=== PATIENT | male | born 1965 | race Caucasian/White ===

== ENCOUNTER 2023-09-25 09:10 | Outpatient (CLI) | payer BC, SELFPAY ==
--- OUTSIDE RECORDS SUMMARY | 2023-10-02 09:39 | XMS_ITS ---
Author Name Unknown Organization [facility] Address [address] [place] [address] Care Team Providers Care Saturation Equipment Operator Name Role Phone Unavailable Unavailable Unavailable Surgery Details Not on file Complications Check Surgery Details section. Procedure Estimated Blood Loss Check Surgery Details section. Procedure Findings Check Surgery Details section. Procedure Specimens Taken Check Surgery Details section.
--- OUTSIDE RECORDS SUMMARY | 2023-10-02 09:39 | XMS_ITS | Encounter Summary ---
Author Name Unknown Organization [facility] Address [address] [place] [address] Care Team Providers Care Pickler Helper Name Role Phone Unavailable Primary Care Provider Unavailabl e Reason for Visit * Reason Comments Med Change Request Encounter Details Date Type Department Care Team ([facility] st Contact Info) Description 06/16/2023 Refill Department of Cardiovascular Medicine in [place], [place] [address] [place] [phone] Shoshana Delacruz M.D., Ph.D. [address] [place] [phone] Med Change Request Social History Tobacco Use Types Packs/Day Years Used Date Smoking Tobacco: Former Cigarettes 1.5 10 Cigars Smokeless Tobacco: Never Alcohol Use Standard Drinks/Week Comments Yes 9 (1 standard drink = 0.6 oz pur e alcohol) Humiliation, Afraid, Rape, and Kick questionnair e Answer Date Recorded Within the last year, have y ou been afraid of your partner or ex-partner? No 03/24/2023 Within the last year, have y ou been humiliated or emotionally abused in other ways by your partner or ex-partner? No Within the last year, have y ou been kicked, hit, slapped, or otherwise physically hurt by your partner or ex-partner? No 03/24/2023 Within the last year, have y ou been raped or forced to have any kind of sexual activity by your partner or ex-partner? No 03/24/2023 Overall Financial Resource Strain (CARDIA) Answe r Date Recorded How hard is it for you to pa y for the very basics like food, housing, medical care, and heating? Not hard at all 03/24/2023 Exercise Vital Sign Answer Date Recorde d On average, how many days pe r week do you engage in moderate to strenuous exercise (like a brisk walk)? 4 days 03/24/2023 On average, how many minutes do you engage in exercise at this level? 30 min 03/24/2023 Hunger Vital Sign Answer Date Recorded Within the past 12 months, y ou worried that your food would run out before you got the money to buy more. Never true 03/24/20 Within the past 12 months, t he food you bought just didn't last and you didn't have money to get more. Never true 03/24/2023 PRAPARE - Transportation Answer Date Re corded In the past 12 months, has l ack of transportation kept you from medical appointments or from getting medications? No 03/15 In the past 12 months, has l ack of transportation kept you from meetings, work, or from getting things needed for daily living? No 03/24/2023 Nutrition Answer Date Recorded Nutrition: EVOO Fat Source Unknown 03/24 On average, how many serving s of fruits and vegetables do you eat per day (serving size is equal to 1 cup or approximately the size of a tennis ball)? 0-2 03/24/2023 Dental Answer Date Recorded Dental: Regular Dentist Yes 03/24/20 Employment Answer Date Recorded Employment status Employed and actively working without restrictions 03/24/2023 Housing Stability Answer Date Recorded What is your living situation today? I have a [facility] place to live 03/24/2023 Sex and Gender Information Value Date Recorded Sex Assigned at Male 03/24/2023 10:10 PM CDT Gender Identity Male 03/24/2023 10:10 PM CDT Sexual Orientation Straight 03/24/2023 10 :10 PM CDT documented as of this encounter Miscellaneous Notes * Telephone Encounter - Ainsley Salcido - 07/07/2023 10:23 AM CDT Please see note from Dr. Delacruz documented in this encounter Plan of Treatment Upcoming Encounters Date Type Department Care Team (Latest Contact Info) Description 10/06/2023 1:00 PM SENIOR ETL DEVELOPER Clinical Communication Virtual Review in [place], [place] 200 [place] [address] 10/09/2023 7:30 AM SENIOR ETL DEVELOPER Appointment Department of Cardiovascular Diseases in [place], [place] [address] [place] [phone] Shoshana Delacruz M.D., Ph.D. [address] [place] [phone] Discharge Disposition: Home or Self Care 10/09/2023 9:15 AM SENIOR ETL DEVELOPER Appointment Department of Radiology, [facility], in [address] [phone] Shoshana Delacruz M.D., Ph.D. [address] [place] [phone] 10/09/2023 9:40 AM SENIOR ETL DEVELOPER Ancillary Procedure Department of Cardiovascular Medicine in [address] [phone] Shoshana Delacruz M.D., Ph.D. [address] [place] [phone] 10/09/2023 10:15 AM SENIOR ETL DEVELOPER Office Visit Department of Cardiovascular Medicine in [address] [phone] Shoshana Delacruz M.D., Ph.D. [address] [place] [phone] 10/09/2023 1:15 PM SENIOR ETL DEVELOPER Appointment Department of Cardiovascular Diseases in [address] [phone] Shoshana Delacruz M.D., Ph.D. [address] [place] [phone] documented as of this encounter Visit Diagnoses Not on filedocumented in this encounter
--- OUTSIDE RECORDS SUMMARY | 2023-10-02 09:39 | XMS_ITS | Encounter Summary ---
Author Name Unknown Organization [facility] Address [address] [place] [address] Care Team Providers Care Cafeteria Food Server Name Role Phone Unavailable Primary Care Provider Unavailabl e Reason for Referral * Outpatient (Routine) - Authorized Specialty Diagnoses / Procedures Referred By Contac t Referred To Contact Diagnoses Cardiomyopathy Hypertrophic (HCC) Procedures Echo Transthoracic (TTE) Shoshana Delacruz M.D., Ph.D. [address] [place] [phone] [facility] Referral ID Status Reason Start Date Expiration Date V isits Requested Visits Authorized [id number] Authorized 07/29/2023 07/28/2024 1 1 IS WORKER * Outpatient (Routine) - Authorized Specialty Diagnoses / Procedures Referred By Contac t Referred To Contact Diagnoses Cardiomyopathy Hypertrophic (HCC) Procedures Cardiopulmonary (VO2) Exercise Test Shoshana Delacruz M.D., Ph.D. [address] [place] [phone] [facility] Referral ID Status Reason Start Date Expiration Date V isits Requested Visits Authorized [id number] Authorized 07/29/2023 07/28/2024 1 1 IS WORKER * Outpatient (Routine) - Authorized Specialty Diagnoses / Procedures Referred By Contac t Referred To Contact Diagnoses Cardiomyopathy Hypertrophic (HCC) Procedures DX Chest AP or PA and Lateral 2 Views Shoshana Delacruz M.D., Ph.D. [address] [place] [phone] [facility] Referral ID Status Reason Start Date Expiration Date V isits Requested Visits Authorized [id number] Authorized 07/29/2023 07/28/2024 1 1 IS WORKER * Outpatient (Routine) - Authorized Specialty Diagnoses / Procedures Referred By Contac t Referred To Contact Diagnoses Cardiomyopathy Hypertrophic (HCC) Procedures ECG 12 Lead Shoshana Delacruz M.D., Ph.D. [address] [place] [phone] [facility] Referral ID Status Reason Start Date Expiration Date V isits Requested Visits Authorized [id number] Authorized 07/29/2023 07/28/2024 1 1 IS WORKER Encounter Details Date Type Department Care Team (Latest Contact Info) Description 07/25/2023 Clinical Communication Department of Cardiovascular Medicine in [place], [place] [address] [place] [phone] Shoshana Delacruz M.D., Ph.D. [address] [place] [phone] Social History Tobacco Use Types Packs/Day Years [...] your living situation today? I have a [facility] place to live 03/24/2023 Sex and Gender Information Value Date Recorded Sex Assigned at Male 03/24/2023 10:10 PM CDT Gender Identity Male 03/24/2023 10:10 PM CDT Sexual Orientation Straight 03/24/2023 10 :10 PM CDT documented as of this encounter Plan of Treatment Upcoming Encounters Date Type Department Care Team (Latest Contact Info) Description 10/06/2023 1:00 PM CRISIS WORKER Clinical Communication Virtual Review in [place], [place] 200 [place] [address] 10/09/2023 7:30 AM CRISIS WORKER Appointment Department of Cardiovascular Diseases in [address] [phone] Shoshana Delacruz M.D., Ph.D. [address] [place] [phone] Discharge Disposition: Home or Self Care 10/09/2023 9:15 AM CRISIS WORKER Appointment Department of Radiology, [facility], in [address] [phone] Shoshana Delacruz M.D., Ph.D. [address] [place] [phone] 10/09/2023 9:40 AM CRISIS WORKER Ancillary Procedure Department of Cardiovascular Medicine in [address] [phone] Shoshana Delacruz M.D., Ph.D. [address] [place] [phone] 10/09/2023 10:15 AM CRISIS WORKER Office Visit Department of Cardiovascular Medicine in [address] [phone] Shoshana Delacruz M.D., Ph.D. [address] [place] [phone] 10/09/2023 1:15 PM CRISIS WORKER Appointment Department of Cardiovascular Diseases in [address] [phone] Shoshana Delacruz M.D., Ph.D. [address] [place] [phone] Scheduled Orders Name Type Priority Associated Diagnoses Order Schedule ECG 12 Lead ECG Routine Cardiomyopathy Hypertrophic (HCC) Expected: 10/09/2023, Expires: 10/09/2025 DX Chest AP or PA and Lateral 2 Views Imaging RAD - Routine (most inpatients and all outpatients) Cardiomyopathy Hypertrophic (HCC) Expected: 10/09/2023, Expires: 10/09/2025 Cardiopulmonary (VO2) Exercise Test Cardiac Services Routine Cardiomyopathy Hypertrophic (HCC) Expected: 10/09/2023, Expires: 10/09/2025 Echo Transthoracic (TTE) Echocardiography Routine Cardiomyopathy Hypertrophic (HCC) Expected: 10/09/2023, Expires: 10/09/2025 documented as of this encounter Visit Diagnoses Diagnosis Cardiomyopathy Hypertrophic (HCC)- Primary documented in this encounter
--- OUTSIDE RECORDS SUMMARY | 2023-10-02 09:39 | XMS_ITS | Encounter Summary ---
Author Name Unknown Organization [facility] Address [address] [place] [address] Care Team Providers Care Coke Inspector Name Role Phone Unavailable Primary Care Provider Unavailabl e Reason for Visit * Reason Comments Med Refill Encounter Details Date Type Department Care Team (Late st Contact Info) Description 04/17/2023 Refill Outpatient Surgery and Procedural Admissions in [place], [place] [address] [place] [phone] Nathan Morgan, RSujathaN. Med Refill Social History Tobacco Use Types Packs/Day Years [...] your living situation today? I have a [facility] place to live 03/24/2023 Sex and Gender Information Value Date Recorded Sex Assigned at Male 03/24/2023 10:10 PM CDT Gender Identity Male 03/24/2023 10:10 PM CDT Sexual Orientation Straight 03/24/2023 10 :10 PM CDT documented as of this encounter Plan of Treatment Upcoming Encounters Date Type Department Care Team (Latest Contact Info) Description 10/06/2023 1:00 PM GROOVER AND STRIPER OPERATOR Clinical Communication Virtual Review in [place], [place] [address] [place] [address] 10/09/2023 7:30 AM GROOVER AND STRIPER OPERATOR Appointment Department of Cardiovascular Diseases in [place], [place] [address] [place] [phone] Shoshana Delacruz M.D., Ph.D. [address] [place] [phone] Discharge Disposition: Home or Self Care 10/09/2023 9:15 AM GROOVER AND STRIPER OPERATOR Appointment Department of Radiology, [facility], in [place], [place] [address] [place] [phone] Shoshana Delacruz M.D., Ph.D. [address] [place] [phone] 10/09/2023 9:40 AM GROOVER AND STRIPER OPERATOR Ancillary Procedure Department of Cardiovascular Medicine in [place], [place] [address] [place] [phone] Shoshana Delacruz M.D., Ph.D. [address] [place] [phone] 10/09/2023 10:15 AM GROOVER AND STRIPER OPERATOR Office Visit Department of Cardiovascular Medicine in [place], [place] [address] [place] [address] Shoshana Delacruz M.D., Ph.D. [address] [place] [phone] 10/09/2023 1:15 PM GROOVER AND STRIPER OPERATOR Appointment Department of Cardiovascular Diseases in [place], [place] [address] [place] [phone] Shoshana Delacruz M.D., Ph.D. [address] [place] [phone] documented as of this encounter Visit Diagnoses Not on filedocumented in this encounter
--- OUTSIDE RECORDS SUMMARY | 2023-10-02 09:39 | XMS_ITS | Encounter Summary ---
Author Name Unknown Organization [facility] Address [address] [place] [address] Care Team Providers Care Manager Psychiatry Name Role Phone Unavailable Primary Care Provider Unavailabl e Reason for Visit * Reason Comments Med Refill Encounter Details Date Type Department Care Team (Late st Contact Info) Description 04/17/2023 Refill Outpatient Surgery and Procedural Admissions in [place], [place] [address] [place] [phone] Nathan Morgan, RSujathaN. Med Refill [...] your living situation today? I have a [facility] place to live 03/24/2023 Sex and Gender Information Value Date Recorded Sex Assigned at Male 03/24/2023 10:10 PM CDT Gender Identity Male 03/24/2023 10:10 PM CDT Sexual Orientation Straight 03/24/2023 10 :10 PM CDT documented as of this encounter Plan of Treatment Upcoming Encounters Date Type Department Care Team (Latest Contact Info) Description 10/06/2023 1:00 PM JOINTER MACHINE Clinical Communication Virtual Review in [place], [place] [address] [place] [address] 10/09/2023 7:30 AM JOINTER MACHINE Appointment Department of Cardiovascular Diseases in [place], [place] [address] [place] [phone] Shoshana Delacruz M.D., Ph.D. [address] [place] [phone] Discharge Disposition: Home or Self Care 10/09/2023 9:15 AM JOINTER MACHINE Appointment Department of Radiology, [facility], in [place], [place] [address] [place] [address] Shoshana Delacruz M.D., Ph.D. [address] [place] [phone] 10/09/2023 9:40 AM JOINTER MACHINE Ancillary Procedure Department of Cardiovascular Medicine in [place], [place] [address] [place] [phone] Shoshana Delacruz M.D., Ph.D. [address] [place] [phone] 10/09/2023 10:15 AM JOINTER MACHINE Office Visit Department of Cardiovascular Medicine in [place], [place] [address] [place] [address] Shoshana Delacruz M.D., Ph.D. [address] [place] [phone] 10/09/2023 1:15 PM JOINTER MACHINE Appointment Department of Cardiovascular Diseases in [place], [place] [address] [place] [phone] Shoshana Delacruz M.D., Ph.D. [address] [place] [phone] documented as of this encounter Visit Diagnoses Not on filedocumented in this encounter
--- OUTSIDE RECORDS SUMMARY | 2023-10-02 09:39 | XMS_ITS | Encounter Summary ---
Author Name Unknown Organization [facility] Address [address] [place] [address] Care Team Providers Care Emergency Medical Services Coordinator Name Role Phone Unavailable Primary Care Provider Unavailabl e Reason for Visit * Reason Onset Date Comments Med Question 06/20/2023 Need clarificati on of which type of Metoprolol Encounter Details Date Type Department Care Team (Latest Contact Info) Description 06/20/2023 Clinical Communication Department of Cardiovascular Medicine in [place], [place] [address] [place] [phone] Shoshana Delacruz M.D., Ph.D. [address] [place] [phone] Med Question (Need clarification of which type of Metoprolol) Social History Tobacco Use Types Packs/Day Years [...] your living situation today? I have a [facility] place to live 03/24/2023 Sex and Gender Information Value Date Recorded Sex Assigned at Male 03/24/2023 10:10 PM CDT Gender Identity Male 03/24/2023 10:10 PM CDT Sexual Orientation Straight 03/24/2023 10 :10 PM CDT documented as of this encounter Miscellaneous Notes * Telephone Encounter - Meagan Vazquez RSujathaN. - 06/24/2023 11:22 AM CDT SUBJECTIVE CHIEF COMPLAINT / REASON FOR CALL Med Question (Need clarification of which type of Metoprolol) Information Discussed [facility] was contacted for medication clarification. RN clarified with the pharmacist that patient is on Metoprolol Succinate 100mg daily as well as Metoprolol Tartrate 50mg daily as needed for palpitations. PLAN The following references were used: nursing clinical judgement documented in this encounter Plan of Treatment Upcoming Encounters Date Type Department Care Team (Latest Contact Info) Description 10/06/2023 1:00 PM CATH LAB TECHNOLOGIST Clinical Communication Virtual Review in [address] [address] 10/09/2023 7:30 AM CATH LAB TECHNOLOGIST Appointment Department of Cardiovascular Diseases in [address] [phone] Shoshana Delacruz M.D., Ph.D. [address] [place] [phone] Discharge Disposition: Home or Self Care 10/09/2023 9:15 AM CATH LAB TECHNOLOGIST Appointment Department of Radiology, [facility], in [address] [phone] Shoshana Delacruz M.D., Ph.D. [address] [place] [phone] 10/09/2023 9:40 AM CATH LAB TECHNOLOGIST Ancillary Procedure Department of Cardiovascular Medicine in [address] [phone] Shoshana Delacruz M.D., Ph.D. [address] [place] [phone] 10/09/2023 10:15 AM CATH LAB TECHNOLOGIST Office Visit Department of Cardiovascular Medicine in [address] [phone] Shoshana Delacruz M.D., Ph.D. [address] [place] [phone] 10/09/2023 1:15 PM CATH LAB TECHNOLOGIST Appointment Department of Cardiovascular Diseases in [place], [place] [address] [place] [phone] Shoshana Delacruz M.D., Ph.D. [address] [place] [phone] documented as of this encounter Visit Diagnoses Not on filedocumented in this encounter
--- OUTSIDE RECORDS SUMMARY | 2023-10-02 09:39 | XMS_ITS | Clinical Summary ---
Author Name Unknown Organization [facility] Address [address] [place] [address] Care Team Providers Care Director Of Product Design Name Role Phone Unavailable Primary Care Provider Unavailabl e Source Comments Patient records contain information from all sites at [facility]. For routine questions regarding patient records, call [phone] during business hours, M-F 8:00 AM - 5:00 PM Central Time. Record requests for emergency care only can be directed to [phone] at any time.[facility] Allergies Active Allergy Reactions Criticality Noted Date Comments Nitroglycerin Other (see comments) 08/23/2014 Due to hypertropic cardiomyopathy HCM, he was told by pin inserter regulator Oxycodone Itching 06/10/2013 Penicillins Other (see comments) 06/10/2013 Medications Medication Sig Dispensed Refills Start Date End Date Status dronedarone (Multaq) 400 mg tablet Take 400 mg by mouth 2 (two) times a day with meals. 0 03/03/2023 Active rivaroxaban (XARELTO) 20 mg tablet Take 20 mg by mouth daily with dinner. 0 01/25/2023 Active testosterone (ANDROGEL) 1.62 % (20.25 mg/1.25 gram) gel Place 20.25 mg on the skin daily. 2 PUMPS A DAY 0 07/19/2019 Active L.acidoph-L.alvaro-B .bif-S.therm (BACID) 1 billion cell- 250 mg per tablet Take 1 tablet by mouth daily. 0 Active furosemide (LASIX) 20 mg tablet Take 0.5 tablets (10 mg total) by mouth daily. 45 tablet 3 03/26/2023 03/25/2024 Active valsartan (DIOVAN) 80 mg tablet Take 1 tablet (80 mg total) by mouth daily. 90 tablet 3 03/27/2023 Active metoprolol succinate (TOPROL-XL) 100 mg 24 hr tablet Take 1 tablet (100 mg total) by mouth daily. 90 tablet 3 04/08/2023 Active atorvastatin (LIPITOR) 80 mg tablet Take 1 tablet (80 mg total) by mouth daily. 90 tablet 3 04/17/2023 Active metoprolol tartrate (LOPRESSOR) 50 mg tablet Take 1 tablet (50 mg total) by mouth as needed (palpitations, increased heart rate). 30 tablet 3 04/17/2023 Active rivaroxaban (XARELTO) 20 mg tablet Take 1 tablet (20 mg total) by mouth daily with dinner. 90 tablet 3 04/17/2023 Active dronedarone (MULTAQ) 400 mg tablet Take 1 tablet (400 mg total) by mouth 2 (two) times a day with meals. 180 tablet 3 04/17/2023 Active Encounters Date Type Department Care Team Description 07/25/2023 Clinical Communication Department of Cardiovascular Medicine in [place], [place] [address] [place] [address] Shoshana Delacruz M.D., Ph.D. from Last 3 Months Family History Medical History Relation Name Comments Psychiatric Brother Luis Miguel Parkinson disease Father Jimbo Prostate cancer Father Jimbo Coronary artery disease Mother Alicia Hyperlipidemia Mother Alicia Hypertension Mother Alicia Obesity Mother Alicia Lung cancer Paternal Grandmother Stroke Paternal Grandmother ADD Son Jeet Relation Name Status Comments Brother Luis Miguel Father Jimbo Mother Alicia Paternal Grandmother Son Jeet Social History Tobacco Use Types Packs/Day Years Used Date Smoking Tobacco: Former Cigarettes 1.5 10 Cigars Smokeless Tobacco: Never Tobacco Cessation:Counseling Given: Not Answered Alcohol Use Standard Drinks/Week Comments Yes 9 [...] your living situation today? I have a [facility] place to live 03/24/2023 Sex and Gender Information Value Date Recorded Sex Assigned at Male 03/24/2023 10:10 PM CDT Gender Identity Male 03/24/2023 10:10 PM CDT Sexual Orientation Straight 03/24/2023 10 :10 PM CDT Last Filed Vital Signs Vital Sign Reading Time Taken Comments Blood Pressure 127/81 03/26/2023 9:38 AM CDT Pulse 59 03/26/2023 9:38 AM CDT Temperature - - Respiratory Rate - - Oxygen Saturation - - Inhaled Oxygen Concentration - - Weight 112 kg (246 lb 5.8 oz) 03/26/2023 9:38 AM CDT Height 177.4 cm (5' 9.84) 03/26/2023 9:38 AM CD T Body Mass Index 35.51 03/26/2023 9:38 AM CDT Plan of Treatment Upcoming Encounters Date Type Department Care Team (Latest Contact Info) Description 10/06/2023 1:00 PM BILINGUAL LOAN PROCESSOR Clinical Communication Virtual Review in [place], [place] [address] [place] [address] 10/09/2023 7:30 AM BILINGUAL LOAN PROCESSOR Appointment Department of Cardiovascular Diseases in [address] [phone] Shoshana Delacruz M.D., Ph.D. [address] [place] [phone] Discharge Disposition: Home or Self Care 10/09/2023 9:15 AM BILINGUAL LOAN PROCESSOR Appointment Department of Radiology, [facility] in [address] [address] Shoshana Delacruz M.D., Ph.D. [address] [place] [phone] 10/09/2023 9:40 AM BILINGUAL LOAN PROCESSOR Ancillary Procedure Department of Cardiovascular Medicine in [address] [address] Shoshana Delacruz M.D., Ph.D. [address] [place] [phone] 10/09/2023 10:15 AM BILINGUAL LOAN PROCESSOR Office Visit Department of Cardiovascular Medicine in [address] [address] Shoshana Delacruz M.D., Ph.D. [address] [place] [phone] 10/09/2023 1:15 PM BILINGUAL LOAN PROCESSOR Appointment Department of Cardiovascular Diseases in [place], [place] [address] [place] [phone] Shoshana Delacruz M.D., Ph.D. 200 [place] [phone] Health Maintenance Due Date Last Done Comments CT Colonography 1967 Cologuard 1967 Colonoscopy 1967 Colorectal Cancer Surveillance 1967 HIV Screening 1967 Hepatitis C Screening 1967 Hepatitis B Vaccines (2 of 3 - 19+ 3-dose series) 11/03/2001 10/06/2001, 08/04/2001 Zoster Vaccines (1 of 2) 2017 COVID-19 Vaccine ( season) 2023 08/06/2021, 12/21/2020, 11/30/2020 Influenza Vaccine (#1) 2023 , 08/20/2019, 08/14/2016, Additional history exists Depression Screening (Annual PHQ-2) 09/15/2023 Creatinine Level (Kidney Function Test) 03/25/2024 03/25/2023, 08/16/2022, 12/03/2021, Additional history exists Potassium Level 03/25/2024 03/25/2023, 10/2021, 12/03/2021, Additional history exists Sodium Level 03/25/2024 03/25/2023, 10/2021, 12/03/2021, Additional history exists DTaP,Tdap,and Td Vaccines (2 - Td or Tdap) 02/14/2025 02/14/2015, 02/27/2003, 03/16/1994 Fasting Glucose for Diabetes Screening 03/25/2026 03/25/2023, 08/16/2022, 12/03/2021, Additional history exists Lipid (Cholesterol) Screening 03/25/2028 03/25/2023, 11/13/2022, 08/16/2022 Pneumococcal vaccine (0-64 years) Aged Out No longer eligible based on patient's age to complete this topic
--- OUTSIDE RECORDS SUMMARY | 2023-10-02 09:39 | XMS_ITS | Referral Summary ---
Author Name Unknown Organization [facility] Address [address] [place] [address] Care Team Providers Care Trading Floor Operator Name Role Phone Unavailable Primary Care Provider Unavailabl e Source Comments Patient records contain information from all sites at [facility]. For routine questions regarding patient records, call [phone] during business hours, M-F 8:00 AM - 5:00 PM Central Time. Record requests for emergency care only can be directed to [phone] at any time.[facility] Encounters Date Type Department Care Team Description 07/25/2023 Clinical Communication Department of Cardiovascular Medicine in [place], [place] [address] [place] [address] Shoshana Delacruz M.D., Ph.D. from Last 3 Months Allergies Active Allergy Reactions Criticality Noted Date Comments Nitroglycerin Other (see comments) 08/23/2014 Due to hypertropic cardiomyopathy HCM, he was told by tenterer Oxycodone Itching 06/10/2013 Penicillins Other (see comments) [...] 2 PUMPS A DAY 0 07/19/2019 Active L.acidoph-L.bulg-B .bif-S.therm (BACID) 1 billion cell- 250 mg [...] with meals. 180 tablet 3 04/17/2023 Active Social History Tobacco Use Types Packs/Day Years [...] your living situation today? I have a [facility] place to live 03/24/2023 Sex and [...] (Latest Contact Info) Description 10/06/2023 1:00 PM PLATEN PRESS OPERATOR APPRENTICE Clinical Communication Virtual Review in [place], [place] [address] [place] [address] 10/09/2023 7:30 AM PLATEN PRESS OPERATOR APPRENTICE Appointment Department of Cardiovascular Diseases in [address] [phone] Shoshana Delacruz M.D., Ph.D. [address] [place] [phone] Discharge Disposition: Home or Self Care 10/09/2023 9:15 AM PLATEN PRESS OPERATOR APPRENTICE Appointment Department of Radiology, [facility], in [address] [phone] Shoshana Delacruz M.D., Ph.D. [address] [place] [phone] 10/09/2023 9:40 AM PLATEN PRESS OPERATOR APPRENTICE Ancillary Procedure Department of Cardiovascular Medicine in [address] [phone] Shoshana Delacruz M.D., Ph.D. [address] [place] [phone] 10/09/2023 10:15 AM PLATEN PRESS OPERATOR APPRENTICE Office Visit Department of Cardiovascular Medicine in [address] [phone] Shoshana Delacruz M.D., Ph.D. [address] [place] [phone] 10/09/2023 1:15 PM PLATEN PRESS OPERATOR APPRENTICE Appointment Department of Cardiovascular Diseases in [address] [address] Shoshana Delacruz M.D., Ph.D. [address] [place] [address]
--- OUTSIDE RECORDS SUMMARY | 2023-10-02 09:39 | XMS_ITS | Encounter Summary ---
Author Name Unknown Organization [facility] Address [address] [place] [address] Care Team Providers Care Health Aide Name Role Phone Unavailable Primary Care Provider Unavailabl e Encounter Details Date Type Department Care Team (Late st Contact Info) Description 04/10/2023 Documentation Department of Medical Genetics in [place], [place] [address] [place] [address] José Luis Mcqueen [address] [place] [address] Social History Tobacco Use Types Packs/Day Years [...] your living situation today? I have a [facility] place to live 03/24/2023 Sex and Gender Information Value Date Recorded Sex Assigned at Male 03/24/2023 10:10 PM CDT Gender Identity Male 03/24/2023 10:10 PM CDT Sexual Orientation Straight 03/24/2023 10 :10 PM CDT documented as of this encounter Progress Notes * José Luis Mcqueen - 04/10/2023 10:54 AM CDT Images from the original note were not included. CHIEF COMPLAINT Genetic Testing Results. Results disclosed on behalf of Karen Martinez MS, [facility] HISTORY OF PRESENT ILLNESS Shoshana was seen in [facility] due to a personal history of hypertrophic cardiomyopathy . At that time, they elected the Arrhythmia and Cardiomyopathy Comprehensive Panel from [facility]. These results were communicated to the patient via the patient online services portal by our genetic counseling shampoo assistant. IMPRESSION/REPORT/PLAN RESULTS To review, Shoshana had genetic testing which included comprehensive sequencing and gross deletion/duplication analysis of 168 genes related to cardiomyopathies and arrhythmias. A full list of the genes analyzed can be found on the report. No pathogenic mutations were identified with this testing. The results of the genetic testing did not identify any mutations of clinical significance. It is possible that a mutation exists in a gene not yet identified, or not tested for. Additionally, genetic testing has less than 100% sensitivity. Therefore, there is a small chance that there is a gene mutation that cannot be identified by current testing methodology. This result does not change medicalmanagement or the diagnosis of hypertrophic cardiomyopathy . 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 To review, a VUS is a change in the spelling of a gene for which the clinical implications are unknown. It could be a harmless change in the DNA (a benign variant) that has no clinical significance, or it could be a harmful change (a pathogenic variant). The MYOM1 gene currently has no well-established disease association; however, there is preliminaryevidence supporting a correlation with autosomal dominant hypertrophic cardiomyopathy (HCM) (PMID: 70378950 However, at this time there is not enough information to determine the significance of this variant. Most VUSs are eventually reclassified as benign changes in our DNA. It is not recommended to change medical management based on a VUS. Additionally, this result should not be used to test other family members. If the laboratory changes the classification of this variant over time, they will issue a new report and patient will be contacted. FAMILY SCREENING Because we could not identify a genetic cause for Shoshana???s clinical presentation, we will not be able to use genetic testing to screen other family members. It is unknown at this time the chance thatother family members will also develop cardiovascular symptoms. Therefore, relatives should inform their physicians of their family history. For individuals with a confirmed diagnosis of HCM, published HCM guidelines state that screening should occur for their first degree relatives (children, siblings, and parents) every 3-5 years for adults, and annually for adolescents (or earlier if a growth spurt or signs of puberty are evident and/or when there are plans for engaging in intense competitive sports or there is a family history of sudden ) (Guadalupe, 2011). It is also reasonable to screen second degree relatives, and possibly other relatives at risk with or without symptoms before to starting competitive sports (Enrique, 2009). Screening should include a physical exam, electrocardiogram, and echocardiogram at minimum. The frequency of screening should be discussed with each individual's managing timber grader. Individuals who participate in competitive athletics may also require more frequent screening, and should discuss this with their physicians. Family members should continue with screening as recommended by their providers. Early detection ofcardiomyopathy is important because it allows for appropriate surveillance and treatment initiation. Additionally, any family member who is experiencing cardiac or other symptoms should seek medical care. We encourage those seeking clinical evaluation or genetic testing to work with a physician or genetic counselor familiar with hereditary cardiomyopathy to ensure appropriate interpretation and follow up of results. We would be happy to see family members here at [facility] or are available toidentify resources closer to the individual's residence. PLAN Genetic testing for cardiomyopathies and arrhythmias will continue to improve over time, and it is recommended to recontact us every 3-5 years to determine if additional testing would be available. They are welcome to contact our clinic with any questions. Electronically signed by Karen Martinez M.S., [facility] at 04/11/2023 2:40 PM CDT documented in this encounter Plan of Treatment Upcoming Encounters Date Type Department Care Team (Latest Contact Info) Description 10/06/2023 1:00 PM WHITE SHOE RAGGER Clinical Communication Virtual Review in [address] [address] 10/09/2023 7:30 AM WHITE SHOE RAGGER Appointment Department of Cardiovascular Diseases in [address] [phone] Shoshana Delacruz M.D., Ph.D. [address] [place] [phone] Discharge Disposition: Home or Self Care 10/09/2023 9:15 AM WHITE SHOE RAGGER Appointment Department of Radiology, [facility], in [address] [phone] Shoshana Delacruz M.D., Ph.D. [address] [place] [phone] 10/09/2023 9:40 AM WHITE SHOE RAGGER Ancillary Procedure Department of Cardiovascular Medicine in [place], [place] [address] [place] [phone] Shoshana Delacruz M.D., Ph.D. [address] [place] [phone] 10/09/2023 10:15 AM WHITE SHOE RAGGER Office Visit Department of Cardiovascular Medicine in [place], [place] [address] [place] [phone] Shoshana Delacruz M.D., Ph.D. [address] [place] [phone] 10/09/2023 1:15 PM WHITE SHOE RAGGER Appointment Department of Cardiovascular Diseases in [place], [place] [address] [place] [phone] Shoshana Delacruz M.D., Ph.D. [address] [place] [phone] documented as of this encounter Visit Diagnoses Not on filedocumented in this encounter
--- OUTSIDE RECORDS SUMMARY | 2023-10-02 09:40 | XMS_ITS | Encounter Summary ---
Author Name Unknown Organization [facility] Address [address] [place] [address] Care Team Providers Care Geological Engineering Teacher Name Role Phone Unavailable Primary Care Provider Unavailabl e Reason for Visit * Appointment Request (Routine) - Closed Specialty Diagnoses / Procedures Referred By Contac t Referred To Contact Cardiovascular Disease Diagnoses Cardiomyopathy Hypertrophic (HCC) Referral ID Status Reason Start Date Expiration Date Visits Re quested Visits Authorized [id number] Closed 12/31/2022 12/31/2023 1 1 Encounter Details Date Type Department Care Team (Latest Contact Info) Description 03/26/2023 10:15 AM CDT Comprehensive Visit Department of Cardiovascular Medicine in [place], [place] [address] [place] [address] Shoshana Delacruz M.D., Ph.D. [address] [place] [address] Cardiomyopathy Obstructive Hypertrophic (HCC) (Primary Dx); Atrial Fibrillation Paroxysmal (HCC) Social History Tobacco Use Types Packs/Day Years [...] your living situation today? I have a [facility] place to live 03/24/2023 Sex and Gender Information Value Date Recorded Sex Assigned at Male 03/24/2023 10:10 PM CDT Gender Identity Male 03/24/2023 10:10 PM CDT Sexual Orientation Straight 03/24/2023 10 :10 PM CDT documented as of this encounter Last Filed Vital Signs Vital Sign Reading [...] Mass Index 35.51 03/26/2023 9:38 AM CDT documented in this encounter Consult Notes * Shoshana Delacruz M.D., Ph.D. - 03/26/2023 10:15 AM CDT SUBJECTIVE Referring Provider: No ref. provider found Reason for Consultation: 1. Sigmoid subtype hypertrophic cardiomyopathy. CHIEF COMPLAINT/REASON FOR CONSULT Initial evaluation, risk-stratification and management of sigmoid subtype hypertrophic cardiomyopathy. HISTORY OF PRESENT ILLNESS Mr. Shoshana Rinaldi is a very pleasant 57 y.o. male with a previous medical history significant for sigmoid subtype hypertrophic cardiomyopathy, coronary artery disease on outside 11/2021 coronary angiogram, paroxysmal atrial fibrillation s/p catheter ablation on dronedarone for rhythm control, hyperlipidemia, hypertension, and obstructive sleep apnea on CPAP who [facility] evaluation of sigmoid subtype hypertrophic cardiomyopathy. Briefly, Mr. Rinaldi first came to clinical attention from a hypertrophic cardiomyopathy perspectivein 05/2013 when the resting portion of a stress echocardiogram revealed asymmetric LV hypertrophy with a maximal LV wall thickness of 20 mm. Since this time, he has followed at [facility] (initially with Dr. Jenaro Alan and most recently with Dr. Shoshana Rasheed) with his most recent echocardiogram obtained in 07/2022 showing modest latent LVOT obstruction (no LVOT obstruction at rest; LVOT gradient of 37 mm Hg with Valsalva). Currently, Mr. Rinaldi's most significant issue relates to rare paroxysmal episodes of atrial fibrillation. Every 7-14 days he has symptomatic episodes of AppleWatch-documented atrial fibrillation that result in a pounding sensation and at times a sensation of near syncope. Importantly, symptoms occur even with rates in the 60's and 70's and to an even greater extent when rates are rarely >100 bpm. In addition, Mr. Rinaldi notes some bilateral lower extremity edema that over the past 1-2 month hasgotten precipitously worse to the point he was started on Lasix 20 mg PO daily. With this his lowerextremity swelling has improved and he denies any increased dyspnea or chest discomfort. From an exercise perspective, when his legs (bone spur and achilles tendon) are not bothering him he is able to run 3 miles at a 3 to 6 mph pace without issues and neither stairs nor inclines pose any sort of problem. He denies any syncope or overt heart failure symptoms. FAMILY HISTORY A multi generational family history was obtained. There is no clear family history of sudden cardiac amongst first-degree relatives. Similarly, there is no known family history of HCM. His mother in her mid 40's and had a history of open heart surgery for unclear reasons. The patient has 8 half siblings and no full siblings. His four adult children were screened for HCM during their high school years with no evidence of the disease but are currently due for re-screening. REVIEW OF SYSTEMS 10-point review of systems is negative except as per HPI. OBJECTIVE There were no vitals filed for this visit. BP Readings from Last 3 Encounters: No data found for BP PHYSICAL EXAMINATION General: Well appearing and appropriately interactive. Eyes: Anicteric sclera without conjunctival pallor. Vessels: No JVD. Heart: Regular rate and rhythm with audible S1 and S2, at rest I could not appreciate any systolic murmur. However, with Valsalva a Sands grade II/IV systolic murmur is appreciated at the upper sternal borders. Lungs: CTAB with no wheezes, rales, or rhonchi. Extremities: 1-2+ lower extremity pitting edema to the mid villafuerte. DIAGNOSTICS Labs: Hemoglobin 14, platelet of 243, white blood cell count 7.5, sodium of 143, potassium 4.2, creatinine of 1.13, glucose of 111, troponin of 7, proBNP of 75, total cholesterol 160, HDL of 51, LDL 70, triglycerides of 241, TSH of 1.7 no apparent monoclonal protein, alpha galactosidase leukocyte activity level is pending. ECG: Sinus bradycardia. Lateral T-wave inversions. AI ECG probability of hypertrophic cardiomyopathy is 0.55. Holter: pending. CPET: pending. TTE: Sigmoid subtype hypertrophic obstructive cardiomyopathy with a maximal LV wall thickness of 17mm. No left ventricular outflow tract obstruction at rest. With Valsalva the maximal instantaneous Doppler gradient through the left ventricular outflow tract was 34 mm Hg. Trivial systolic anterior motion of the mitral valve was observed with Valsalva. Normal LV chamber size with a calculated ejection fraction 69%. Mid left ventricular maximal Doppler gradient 19 mm of Hg at rest and 74 mm Hg with Valsalva. Global average LV strain was borderline -18%. Mild RV enlargement with normal systolic function. Normal inferior vena cava size and collapse. Cardiac MRI: Findings consistent with sigmoid subtype hypertrophic cardiomyopathy with a maximal LVwall thickness of 18 mm. No definitive delayed enhancement. Normal biventricular size and function. Genetic testing: No prior reports in the record. ASSESSMENT / PLAN #1 Sigmoid subtype hypertrophic cardiomyopathy with latent LVOT obstruction (MLVWT of 18 mm; max LVOT gradient of 34 mm Hg with Valsalva) #2 Coronary artery disease on outside 11/2021 coronary angiogram #3 Paroxysmal atrial fibrillation s/p catheter ablation on dronedarone for rhythm control and rivaroxaban for chronic anticoagulation #4 Hyperlipidemia #5 Hypertension #6 Obstructive sleep apnea on CPAP ASSESSMENT: It was wonderful to meet Mr. Rinaldi in the Cardiomyopathy Clinic this morning. I independently reviewed his clinical history and pertinent electrocardiographic, imaging and laboratory data. Collectively, his clinical picture is consistent with sigmoid subtype hypertrophic cardiomyopathywith modest latent LVOT obstruction. From a structural perspective, provokable bi-level (LVOT and mid-cavitary) is present with Valsalvaand the ensuing hyperdynamic LV function. As discussed with Mr. Rinaldi, I suspect the difference between today's study and that performed at [facility] last fall has to do with the addition of Lasix 20 mg PO daily and the resulting hemodynamic effect of dehydration/slightly underfilled LV on LVOT/mid-cavitary gradients. Ideally, we would reduce if not outright remove Lasix 20 mg PO daily as this definitively has the potential to exacerbate his propensity towards latent LVOT obstruction. Furthermore, although there is not a clear temporal relationship between the initiation of amlodipine and Mr. Rinaldi's bilateral lower extremity edema. In an effort, to remove confounding issues and hopefully pave a way towards getting him off Lasix, I recommended discontinuing amlodipine and initiating valsartan as the latter should adequately address his hypertension and does have oiwa-VMO-bqty/anti-fibrotic effects that theoretically could be beneficial in HCM. If blood pressure remains suboptimally controlled we may need to consider transitioning metoprolol succinate 100 mg PO daily to carvedilol to take advantage of the alpha jazmyn component from a hypertension perspective. From an electrical perspective, there are no red flag features or symptoms that fulfil a class I,IIa, or IIb indication for consideration of a primary prevention ICD. 24 hour Holter is pending, but no concerning NSVT was observed on 11/2021 extended ambulatory ECG monitor. Unfortunately, despite prior pulmonary vein isolation and ongoing use of dronedarone, Mr. Rinaldi continues to have a low burden of symptomatic paroxysmal atrial fibrillation even when rates are controlled. We discussed referral to the Heart Rhythm Clinic for consideration of repeat PVI/catheter ablation, but after discussing the need to control AF risk factors such as obstructive sleep apnea, obesity, and hypertension Mr. Rinaldi voiced interest in working on controlling these risk factors in hopes of either avoiding the need for or increasing the durability of a future repeat catheter ablation. To this end, I recommended discussing a trial of semaglutide (ie Ozempic) with his primary care providers at [facility]. With this and implementation of a structured exercise routine that takes advantage of a elliptical, stationary bike, or rower less likely to exacerbate his achilles tendon injury/bone spur, I am hopeful that he may avoid the need for consideration of CPAP (something he is not thrilled about) for MIRTA, hypertension will be easier to optimally control and paroxysmal AF episodes will decrease in frequency/severity. He was very interested in this approach and we mutually agreed to defer any sort of EP evaluation until after he has had some time to implement the above lifestyle changes. Lastly, we discussed the genetic nature of HCM at length. Mr. Rinaldi went through the process of sending genetic testing several years ago, but never learned his results nor could I identify any sortof return of results in CareEverywhere. It very well could be that due to insurance coverage or other issues that a genetic testing panel was never sent. Although the yield of genetic testing in sigmoid subtype HCM patients without any sort of family history of HCM is low (5%-10%), I do feel compelled to rule out the possibility of a monogenic genetic substrate. Ultimately, as discussed with Mr. Rinaldi, his HCM substrate may be polygenic in nature arising from the intersection of an increased burden of 10's to 100's of pro-hypertrophic common variants with environmental risk factors. However,for both his and his family's sake I would like to remove the possibility of a monogenic genetic basis. Regardless of the results of genetic testing, first-degree relatives (children, siblings, etc.) ought to undergo repeat clinical screening with an ECG and echocardiogram every 3-5 years in accordancewith current AHA/ACC guidelines. RECOMMENDATIONS: - Continue metoprolol succinate 100 mg PO daily and dronedarone 400 mg PO BID for the time being from an atrial fibrillation rate/rhythm control perspective. - Discontinue amlodipine 10 mg PO daily given the unexplained bilateral lower extremity edema as I am worried this may be contributing and resulting in a daily diuretic need. - Reduce lasix from 20 mg PO daily to 10 mg PO daily with the ultimate goal of discontinuing shouldlower extremity swelling improve with cessation of amlodipine. - As Mr. Rinaldi is likely to require additional support from the hypertension perspective, I recommended transitioning to valsartan 80 mg PO daily. This can be up-titrated as needed based on home blood pressure readings. - Given that Mr. Rinaldi has hit a wall from a weight loss perspective and is looking to fine-tune his CV/atrial fibrillation risk factors before consideration of re-do PVI, I asked him to discuss thepossibility of semaglutide with his PCP team. From an HCM and overall CV perspective, I am fully supportive and suspect this gives Mr. Rinaldi the best chance to address the weight gain and subsequentresulting co-morbid conditions that may be contributing to increased paroxsymal AF episodes. - As Mr. Rinaldi denies any exercise limitation or exercise-induced symptoms that pre-scheduled CPETcan be cancelled. - We will try to move up his 04/22/2023 CV Genetic Counseling visit to this afternoon as Ms. Dale CGC is impended in the Cardiomyopathy Clinic with me today and I suspect has availability for pre-test counseling and likely pursuit of commercial ricardo-arrhythmia/cardiomyopathy genetic testing. - At this juncture, Mr. Rinaldi would not qualify for a trial of a novel myosin inhibitor or consideration of septal reductive therapy. - There is no class IIa or IIb indication for consideration of a primary prevention ICD. - I will plan on seeing Mr. Rinaldi back in 6 months to re-assess things from an HCM, atrial fibrillation, hypertension and lower extremity edema perspective. In the interim, Mr. Rinaldi has my contactinformation and will reach out if any questions or concerns arise. This plan was discussed in detail with Mr. Rinaldi who is in agreement with the plan as outlined above. All questions answered to the best of my ability. * Marie Calhoun M.D. - 03/26/2023 10:15 AM CDT Referring Provider: Self-referred Reason for Consultation: 1. Hypertrophic cardiomyopathy CHIEF COMPLAINT/REASON FOR CONSULT Palpitations, dizziness HISTORY OF PRESENT ILLNESS Mr. Shoshana Rinaldi is a very pleasant 57 y.o. male [facility]. Today his main concern as atrial fibrillation episodes which are pretty symptomatic. 2-3 Afib episodes in a week that is documented by his Apple watch. During these episodes the heart rate ranges between 50-115 bpm. He feels palpitation, skipped heartbeats, chest pain and dizziness. Apart from these episodes he is totally asymptomatic, denies exertional shortness of breath, chest pain, lightheadedness/dizziness, syncope, presyncope. He used to run every day without limitations up to 2-3 months ago. Due to ankle injury he is less active and has put on about 30 lb. He is currently on amlodipine 10 mg, metoprolol XL 100 mg, Lasix 20 mg, atorvastatin 80 mg on Multaq 400 mg b.I.d.. The Lasix was started last year after developing bilateral lower extremity edema. He has a diagnosis of mild MIRTA since 2019 but does not use CPAP. Does not monitor home blood pressure regularly but on occasions where he measures, the BP averages around high 140s. Does not smoke, drinks alcohol on social occasions. Has 8 half siblings and 3 kids, were screened with transthoracic echocardiogram during teenage years without evidence of disease. No known family history of HCM/SCD. Mom at age 47 because of cardiac issues, had prior open heart surgery at age 30s. Past cardiac history Hypertrophic cardiomyopathy Obstructive Asymmetric septal hypertrophy, maximum thickness 18 mm at basal anteroseptum (Cardiac MRI 03/25/2023). Chordal Angel No LGE LA dilatation present No family history of SCD/hypertrophic cardiomyopathy Family screening: Incomplete Genetic screening: Reportedly negative 4-5 years ago Paroxysmal Afib SP PVI ablation ([facility], 2013), on Multaq and Xarelto Essential hypertension, poorly controlled Mild moderate nonobstructive coronary artery disease (coronary angiogram, [facility], 12/04) Hyperlipidemia Medical comorbidities MIRTA not on CPAP OBJECTIVE Vitals: 03/26/23 0938 BP: 127/81 BP Location: Left arm Patient Position: Sitting Cuff Size: Large Pulse: (!) 59 Weight: 112 kg Height: 177.4 cm BP Readings from Last 3 Encounters: 03/26/23 127/81 ASSESSMENT / PLAN Mr. Rinaldi's she symptomatic paroxysmal atrial fibrillation. It is reasonable to pursue rhythm control. He already had an ablation in 2013 and has been on Multaq with Afib burden of 2.5% on most recent Holter EKG. Available options are switching to sotalol or dofetilide and catheter ablation. He also has multiple potential modifiable factors contributing to his symptoms including uncontrolled blood pressure, untreated MIRTA and weight gain. For MIRTA he does not want to wear CPAP at rather focus onweight loss which is reasonable. He will follow-up with his PCP for GLP antagonist to augment weight loss, he will also focus on diet and exercise. For hypertension we will discontinue amlodipine as this is contributing to his leg swelling and start valsartan as well as switching metoprolol to coreg. He will follow-up with PCP for a BP goal less than 130/80 mm Hg. Mr. Rinaldi up to focus uncontrolled Afib risk factors and he will consider antiarrhythmic and/or ablation therapy if he remains symptomatic despite weight loss and adequate blood pressure control. From structural perspective there is provokable LVOT and mid cavitary obstruction with Valsalva andhyperdynamic LV function which is a new finding when compared to prior outside echocardiogram. I believe this is likely due to Lasix and amlodipine. I recommend discontinuing Lasix and amlodipine as d escribed above. At present he is at low risk for HCM related SCD and does not have ICD indication. For screening purposes I recommend genetic testing and repeat ECG plus TTE for first-degree relatives every 3-5 years in accordance with current aha/ACC guidelines. #1 Hypertrophic obstructive cardiomyopathy with asymmetric septal hypertrophy in the setting of #3 #2 Paroxysmal atrial fibrillation s/p PVI ablation, on Multaq #3 Essential hypertension, poorly controlled #4 Mild nonobstructive CAD (coronary angiogram, November 2021) #5 Hyperlipidemia #6 MIRTA not on CPAP #7 Obesity Plan 1. Discontinue amlodipine, decrease Lasix to 10 mg p.o. daily, start valsartan 80 mg. Will start Ozempic for weight control through his PCP. 2. Regular exercise, weight loss and healthy diet are discussed 3. CV genetic counseling 3. Follow-up within [address]Giudicessi Marie Alvarez M.D. documented in this encounter Plan of Treatment Upcoming Encounters Date Type Department Care Team (Latest Contact Info) Description 10/06/2023 1:00 PM WAREHOUSE TRAINER Clinical Communication Virtual Review in [address] [address] 10/09/2023 7:30 AM WAREHOUSE TRAINER Appointment Department of Cardiovascular Diseases in [address] [phone] Shoshana Delacruz M.D., Ph.D. [address] [place] [phone] Discharge Disposition: Home or Self Care 10/09/2023 9:15 AM WAREHOUSE TRAINER Appointment Department of Radiology, [facility], in [address] [phone] Shoshana Delacruz M.D., Ph.D. [address] [place] [phone] 10/09/2023 9:40 AM WAREHOUSE TRAINER Ancillary Procedure Department of Cardiovascular Medicine in [address] [phone] Shoshana Delacruz M.D., Ph.D. [address] [place] [phone] 10/09/2023 10:15 AM WAREHOUSE TRAINER Office Visit Department of Cardiovascular Medicine in [place], [place] [address] [place] [address] Shoshana Delacruz M.D., Ph.D. [address] [place] [phone] 10/09/2023 1:15 PM WAREHOUSE TRAINER Appointment Department of Cardiovascular Diseases in [place], [place] [address] [place] [address] Shoshana Delacruz M.D., Ph.D. [address] [place] [phone] documented as of this encounter Visit Diagnoses Diagnosis Cardiomyopathy Obstructive Hypertrophic (HCC)- Primary Atrial Fibrillation Paroxysmal (HCC) documented in this encounter
--- OUTSIDE RECORDS SUMMARY | 2023-10-02 09:40 | XMS_ITS | Encounter Summary ---
Author Name Unknown Organization [facility] Address [address] [place] [id number] Care Team Providers Care Marine Fireman Name Role Phone Unavailable Primary Care Provider Unavailabl e Reason for Visit * Reason Comments Med Refill Encounter Details Date Type Department Care Team ([facility] st Contact Info) Description 04/02/2023 Refill Department of Cardiovascular Medicine in [place], [place] [address] [place] [phone] Shoshana Delacruz M.D., Ph.D. [address] [place] [address] Med Refill Social History Tobacco Use Types [...] your living situation today? I have a [facility] place to live 03/24/2023 Sex and Gender Information Value Date Recorded Sex Assigned at Male 03/24/2023 10:10 PM CDT Gender Identity Male 03/24/2023 10:10 PM CDT Sexual Orientation Straight 03/24/2023 10 :10 PM CDT documented as of this encounter Miscellaneous Notes * Telephone Encounter - Meagan Vazquez R.N. - 04/08/2023 11:31 AM CDT Medication ordered and managed by Dr. Shoshana Rasheed with [facility] * Telephone Encounter - Omari Ainsley M - 04/02/2023 1:18 PM CDT Images from the original note were not included. Nurse review: Unable to pend medication to provider: Requested Med found on the EHA exclusion list. Name of Medication: Xarelto Strength: 20 mg Frequency: 1 tab daily Last seen: 03-26-23 Pharmacy: documented in this encounter Plan of Treatment Upcoming Encounters Date Type Department Care Team (Latest Contact Info) Description 10/06/2023 1:00 PM LEAD GENERATION MARKETING MANAGER Clinical Communication Virtual Review in [address] [address] 10/09/2023 7:30 AM LEAD GENERATION MARKETING MANAGER Appointment Department of Cardiovascular Diseases in [address] [phone] Shoshana Delacruz M.D., Ph.D. [address] [place] [phone] Discharge Disposition: Home or Self Care 10/09/2023 9:15 AM LEAD GENERATION MARKETING MANAGER Appointment Department of Radiology, [facility], in [address] [phone] Shoshana Delacruz M.D., Ph.D. [address] [place] [phone] 10/09/2023 9:40 AM LEAD GENERATION MARKETING MANAGER Ancillary Procedure Department of Cardiovascular Medicine in [address] [phone] Shoshana Delacruz M.D., Ph.D. [address] [place] [phone] 10/09/2023 10:15 AM LEAD GENERATION MARKETING MANAGER Office Visit Department of Cardiovascular Medicine in [address] [phone] Shoshana Delacruz M.D., Ph.D. [address] [place] [phone] 10/09/2023 1:15 PM LEAD GENERATION MARKETING MANAGER Appointment Department of Cardiovascular Diseases in [place], [place] [address] [place] [phone] Shoshana Delacruz M.D., Ph.D. [address] [place] [phone] documented as of this encounter Visit Diagnoses Diagnosis Atrial Fibrillation Unspecified (HCC) documented in this encounter
--- OUTSIDE RECORDS SUMMARY | 2023-10-02 09:40 | XMS_ITS | Encounter Summary ---
Author Name Unknown Organization [facility] Address [address] [place] [id number] Care Team Providers Care Therapist Name Role Phone Unavailable Primary Care Provider Unavailabl e Reason for Referral * Outpatient (Routine) - Closed Specialty Diagnoses / Procedures Referred By Amparoac t Referred To Contact Diagnoses Cardiomyopathy Obstructive Hypertrophic (HCC) Procedures Echo Transthoracic (TTE) Shoshana Delacruz M.D., Ph.D. 200 [place] [address] [facility] Referral ID Status Reason Start Date Expiration Date Visits Re quested Visits Authorized [id number] Closed 01/02/2023 01/02/2024 1 1 Reason for Visit * Outpatient (Routine) - Closed Specialty Diagnoses / Procedures Referred By Contac t Referred To Contact Diagnoses Cardiomyopathy Obstructive Hypertrophic (HCC) Procedures Echo Transthoracic (TTE) Shoshana Delacruz M.D., Ph.D. 200 [place] [address] [facility] Referral ID Status Reason Start Date Expiration Date Visits Re quested Visits Authorized [id number] Closed 01/02/2023 01/02/2024 1 1 Encounter Details Date Type Department Care Team (Latest Contact Info) Description 03/25/2023 6:15 PM CDT - 03/25/2023 11:59 PM CDT Hospital Encounter Department of Cardiovascular Diseases in [place], [place] 200 [place] [phone] Shoshana Delacruz M.D., Ph.D. [address] [place] [address] Cardiomyopathy Obstructive Hypertrophic (HCC) Discharge Disposition: Home or Self Care Social History Tobacco Use Types Packs/Day Years Used Date Smoking Tobacco: Former Cigarettes 1.5 10 Cigars Smokeless Tobacco: Never Humiliation, Afraid, Rape, and Kick questionnair e [...] money to buy more. Never true 03/24/20 23 Within the past 12 months, t he [...] your living situation today? I have a [facility] place to live 03/24/2023 Sex and Gender Information Value Date Recorded Sex Assigned at Male 03/24/2023 10:10 PM CDT Gender Identity Male 03/24/2023 10:10 PM CDT Sexual Orientation Straight 03/24/2023 10 :10 PM CDT documented as of this encounter Medications at Time of Discharge Medication Sig Dispensed Refills Start Date End Date dronedarone (Multaq) 400 mg tablet Take 400 mg by mouth 2 (two) times a day with meals. 0 03/03/2023 LSujathaacidfortunato-Albina-Destinybif-S. therm (BACID) 1 billion cell- 250 mg per tablet Take 1 tablet by mouth daily. 0 rivaroxaban (XARELTO) 20 mg tablet Take 20 mg by mouth daily with dinner. 0 01/25/2023 testosterone (ANDROGEL) 1.62 % (20.25 mg/1.25 gram) gel Place 20.25 mg on the skin daily. 2 PUMPS A DAY 0 07/19/2019 amLODIPine (NORVASC) 10 mg tablet Take 10 mg by mouth daily. 0 01/25/2023 03/26/2023 atorvastatin (LIPITOR) 80 mg tablet Take 80 mg by mouth daily. 0 11/28/2022 04/17/2023 furosemide (LASIX) 20 mg tablet Take 1 tablet by mouth daily. 0 01/31/2023 03/26/2023 metoprolol succinate (TOPROL-XL) 100 mg 24 hr tablet Take 100 mg by mouth daily. 0 01/25/2023 04/08/2023 metoprolol tartrate (LOPRESSOR) 50 mg tablet Take 50 mg by mouth as needed. 0 04/17/2023 documented as of this encounter Plan of Treatment Upcoming Encounters Date Type Department Care Team (Latest Contact Info) Description 10/06/2023 1:00 PM CONSULTING ANALYST Clinical Communication Virtual Review in [place], [place] 200 [place] [address] 10/09/2023 7:30 AM CONSULTING ANALYST Appointment Department of Cardiovascular Diseases in [address] [phone] Shoshana Delacruz M.D., Ph.D. [address] [place] [phone] Discharge Disposition: Home or Self Care 10/09/2023 9:15 AM CONSULTING ANALYST Appointment Department of Radiology, [facility], in [address] [phone] Shoshana Delacruz M.D., Ph.D. [address] [place] [phone] 10/09/2023 9:40 AM CONSULTING ANALYST Ancillary Procedure Department of Cardiovascular Medicine in [address] [phone] Shoshana Delacruz M.D., Ph.D. [address] [place] [phone] 10/09/2023 10:15 AM CONSULTING ANALYST Office Visit Department of Cardiovascular Medicine in [address] [phone] Shoshana Delacruz M.D., Ph.D. [address] [place] [phone] 10/09/2023 1:15 PM CONSULTING ANALYST Appointment Department of Cardiovascular Diseases in [address] [phone] Shoshana Delacruz M.D., Ph.D. [address] [place] [phone] documented as of this encounter Procedures Procedure Name Priority Date/Time Associated Diagnosis Comments (TTE) 2D ECHO DOPPLER COLOR Routine 03/25/2023 8:04 PM CDT Cardiomyopathy Obstructive Hypertrophic (HCC) documented in this encounter Results * (TTE) 2D ECHO DOPPLER COLOR (03/25/2023 8:04 PM CDT) Ejection Fraction 69 MC CV EIMS Mid-Ascending Aorta 39 MC CV EIMS LV Mass Index 103 MC CV EIMS LV End-Diastolic Diameter 48 MC CV EIMS LV End-Systolic Diameter 28 MC CV EIMS MV E Velocity 0.7 MC CV EIMS MV A Velocity 0.6 MC CV EIMS MV E/A 1.17 MC CV EIMS MV e' Velocity Medial 0.1 MC CV EIMS MV e' Velocity Lateral 0.13 MC CV EIMS MV E/e' Medial 7 MC CV EIMS MV E/e' Lateral 5.4 MC CV EIMS LV Global Longitudinal Strain -18 MC CV EIMS LV Interventricular Septal Wall Thickness 16 MC CV EIMS LV Posterior Wall Thickness 9 MC CV EIMS LV Relative Wall Thickness 38 MC CV EIMS RV 4-Chamber Basal Diameter 47 MC CV EIMS RV 4-Chamber Mid Diameter 36 MC CV EIMS RV 4-Chamber Length 80 MC CV EIMS Tricuspid Annular S? 0.18 MC CV EIMS RA Pressure 5 MC CV EIMS AV mean gradient 8 MC CV EIMS Aortic Valve Systolic Peak Velocity 1.8 MC CV EIMS Anatomical Region Laterality Modality Echocardiography 03/25/2023 6:58 PM CDT Impressions 03/25/2023 8:47 PM CDT Hypertrophic cardiomyopathy, obstructive. The septal contour was sigmoid. The thickest wall segment was the basal anterior septal segment (17 mm). Mid left ventricular maximal instantaneous Doppler gradient rest 19 mm Hg; Valsalva 74 mm Hg. Left ventricular outflow tract mean Doppler gradient with Valsalva 34 mm Hg. LEFT VENTRICLE:Normal left ventricular chamber size. Calculated 2-D linear left ventricular ejection fraction 69%. Strain imaging examination performed to assess left ventricular function. Global averaged left ventricular longitudinal peak systolic strain is borderline at -18% (normal = more negative than -18%). No regional wall motion abnormalities. Normal left ventricular filling pressure. RIGHT VENTRICLE:Mildly enlarged right ventricular chamber size. Normal right ventricular systolic function. Unable to detect peak tricuspid regurgitation velocity for pulmonary artery systolic pressure calculation. ATRIA:Normal left atrial size by visual estimate. Normal right atrial size by visual estimate. CARDIAC VALVES:Trileaflet aortic valve. Thickened aortic valve. No aortic valve regurgitation. Thickened mitral valve. Mitral chordal systolic anterior motion. Trivial mitral valve regurgitation. Normal pulmonary valve. Normal pulmonary valve systolic velocities. Trivial pulmonary valve regurgitation. Normal tricuspid valve. Trivial tricuspid valve regurgitation. OTHER ECHO FINDINGS:Normal inferior vena cava size with normal inspiratory collapse (>50%). Normal mid ascending aorta diameter of 39 mm. No abdominal aortic aneurysm. Normal abdominal aorta Doppler flow pattern. Lipomatous atrial septum. No atrial level shunt by color flow imaging. No intracardiac mass or thrombus, but the left atrial appendage cannot be visualized adequately with transthoracic echo to exclude thrombus in this location. No ??pericardial effusion. For the complete report, see the Order-Level Documents. Narrative 03/25/2023 8:47 PM CDT For the complete report, see the Order-Level Documents. Hemodynamics Heart Rate: 65 BPM Blood Pressure: 144 / 88 mmHg ECG: Sinus rhythm Final Impressions 1. Hypertrophic cardiomyopathy, obstructive. The septal contour was sigmoid, the thickest wall segment was the basal anterior septal segment (17 mm). 2. No left ventricular outflow tract obstruction at rest. With Valsalva the maximal instantaneous Doppler gradient through the LVOT is 34 mm Hg. 3. Mitral chordal systolic anterior motion with possible trivial systolic anterior motion of the mitral valve with Valsalva. ??Trivial mitral valve regurgitation at rest and with Valsalva. 4. Normal left ventricular chamber size. Calculated 2D linear left ventricular ejection fraction 69%. No regional wall abnormalities. 5. Mid left ventricular maximal instantaneous Doppler gradient rest 19 mm Hg; Valsalva 74 mm Hg in the setting of hyperdynamic systolic function and cavity obliteration at the mid level. 6. Global averaged left ventricular longitudinal peak systolic strain is borderline at -18% (normal = more negative than -18%). 7. Mildly enlarged right ventricular chamber size , normal systolic function. Unable to detect peak tricuspid regurgitation velocity for pulmonary artery systolic pressure calculation. 8. Normal inferior vena cava size with normal inspiratory collapse (>50%). No pericardial effusion. Procedure Note Joe Cade M.D. - 03/25/2023 For the complete report, see the Order-Level Documents. Hemodynamics Heart Rate: 65 BPM Blood Pressure: 144 / 88 mmHg ECG: Sinus rhythm Final Impressions 1. Hypertrophic cardiomyopathy, obstructive. The septal contour wassigmoid, the thickest wall segment was the basal anterior septal segment(17 mm). 2. No left ventricular outflow tract obstruction at rest. With Valsalvathe maximal instantaneous Doppler gradient through the LVOT is 34 mm Hg. 3. Mitral chordal systolic anterior motion with possible trivial systolicanterior motion of the mitral valve with Valsalva. Trivial mitral valveregurgitation at rest and with Valsalva. 4. Normal left ventricular chamber size. Calculated 2D linear leftventricular ejection fraction 69%. No regional wall abnormalities. 5. Mid left ventricular maximal instantaneous Doppler gradient rest 19 mmHg; Valsalva 74 mm Hg in the setting of hyperdynamic systolic function andcavity obliteration at the mid level. 6. Global averaged left ventricular longitudinal peak systolic strain isborderline at -18% (normal = more negative than -18%). 7. Mildly enlarged right ventricular chamber size , normal systolicfunction. Unable to detect peak tricuspid regurgitation velocity forpulmonary artery systolic pressure calculation. 8. Normal inferior vena cava size with normal inspiratory collapse (>50%).No pericardial effusion. Findings Hypertrophic cardiomyopathy, obstructive. The septal contour was sigmoid.The thickest wall segment was the basal anterior septal segment (17 mm).Mid left ventricular maximal instantaneous Doppler gradient rest 19 mm Hg;Valsalva 74 mm Hg. Left ventricular outflow tract mean Doppler gradientwith Valsalva 34 mm Hg. LEFT VENTRICLE:Normal left ventricular chamber size. Calculated 2-D linearleft ventricular ejection fraction 69%. Strain imaging examinationperformed to assess left ventricular function. Global averaged leftventricular longitudinal peak systolic strain is borderline at -18%(normal = more negative than -18%). No regional wall motion abnormalities.Normal left ventricular filling pressure. RIGHT VENTRICLE:Mildly enlarged right ventricular chamber size. Normalright ventricular systolic function. Unable to detect peak tricuspidregurgitation velocity for pulmonary artery systolic pressurecalculation. ATRIA:Normal left atrial size by visual estimate. Normal right atrial sizeby visual estimate. CARDIAC VALVES:Trileaflet aortic valve. Thickened aortic valve. No aorticvalve regurgitation. Thickened mitral valve. Mitral chordal systolicanterior motion. Trivial mitral valve regurgitation. Normal pulmonaryvalve. Normal pulmonary valve systolic velocities. Trivial pulmonary valveregurgitation. Normal tricuspid valve. Trivial tricuspid valveregurgitation. OTHER ECHO FINDINGS:Normal inferior vena cava size with normal inspiratorycollapse (>50%). Normal mid ascending aorta diameter of 39 mm. Noabdominal aortic aneurysm. Normal abdominal aorta Doppler flow pattern.Lipomatous atrial septum. No atrial level shunt by color flow imaging. Nointracardiac mass or thrombus, but the left atrial appendage cannot bevisualized adequately with transthoracic echo to exclude thrombus in thislocation. No pericardial effusion. For the complete report, see the Order-Level Documents. Shoshana Delacruz M.D., Ph.D. CV ECHO WI OCEDURES documented in this encounter Visit Diagnoses Diagnosis Cardiomyopathy Obstructive Hypertrophic (HCC) documented in this encounter
--- OUTSIDE RECORDS SUMMARY | 2023-10-02 09:40 | XMS_ITS | Encounter Summary ---
Author Name Unknown Organization [facility] Address [address] [place] [id number] Care Team Providers Care Digital Campaign Manager Name Role Phone Unavailable Primary Care Provider Unavailabl e Reason for Visit * Reason Comments Med Refill Encounter Details Date Type Department Care Team (Late st Contact Info) Description 03/27/2023 Refill Department of Cardiovascular Medicine in [place], [place] [address] [place] [phone] Shoshana Delacruz M.D., Ph.D. [address] [place] [phone] Med Refill Social History Tobacco Use Types [...] your living situation today? I have a [facility] place to live 03/24/2023 Sex and Gender Information Value Date Recorded Sex Assigned at Male 03/24/2023 10:10 PM CDT Gender Identity Male 03/24/2023 10:10 PM CDT Sexual Orientation Straight 03/24/2023 10 :10 PM CDT documented as of this encounter Plan of Treatment Upcoming Encounters Date Type Department Care Team (Latest Contact Info) Description 10/06/2023 1:00 PM DENTAL EQUIPMENT REPAIRER Clinical Communication Virtual Review in [place], [place] [address] [place] [address] 10/09/2023 7:30 AM DENTAL EQUIPMENT REPAIRER Appointment Department of Cardiovascular Diseases in [place], [place] [address] [place] [phone] Shoshana Delacruz M.D., Ph.D. [address] [place] [phone] Discharge Disposition: Home or Self Care 10/09/2023 9:15 AM DENTAL EQUIPMENT REPAIRER Appointment Department of Radiology, [facility], in [place], [place] [address] [place] [phone] Shoshana Delacruz M.D., Ph.D. [address] [place] [phone] 10/09/2023 9:40 AM DENTAL EQUIPMENT REPAIRER Ancillary Procedure Department of Cardiovascular Medicine in [place], [place] [address] [place] [phone] Shoshana Delacruz M.D., Ph.D. [address] [place] [phone] 10/09/2023 10:15 AM DENTAL EQUIPMENT REPAIRER Office Visit Department of Cardiovascular Medicine in [place], [place] [address] [place] [phone] Shoshana Delacruz M.D., Ph.D. [address] [place] [phone] 10/09/2023 1:15 PM DENTAL EQUIPMENT REPAIRER Appointment Department of Cardiovascular Diseases in [place], [place] [address] [place] [phone] Shoshana Delacruz M.D., Ph.D. [address] [place] [phone] documented as of this encounter Visit Diagnoses Not on filedocumented in this encounter
--- OUTSIDE RECORDS SUMMARY | 2023-10-02 09:40 | XMS_ITS | Encounter Summary ---
Author Name Unknown Organization [facility] Address [address] [place] [id number] Care Team Providers Care Timing Adjuster Name Role Phone Unavailable Primary Care Provider Unavailabl e Reason for Visit * Outpatient (Routine) - Closed Specialty Diagnoses / Procedures Referred By Niels t Referred To Contact [facility] Diagnoses Cardiomyopathy Obstructive Hypertrophic (HCC) Shoshana Delacruz M.D., Ph.D. [address] [place] [phone] [facility] Referral ID Status Reason Start Date Expiration Date Visits Re quested Visits Authorized [id number] Closed 01/02/2023 01/02/2024 1 1 Encounter Details Date Type Department Care Team (Latest Contact Info) Description 03/26/2023 2:00 PM CDT Comprehensive Visit Department of Cardiovascular Medicine in [place], [place] [address] [place] [phone] Shoshana Delacruz M.D., Ph.D. [address] [place] [address] [phone] Karen Martinez M.S., [facility] [address] [place] [phone] Cardiomyopathy Obstructive Hypertrophic (HCC) (Primary Dx) Social History Tobacco Use Types Packs/Day Years [...] your living situation today? I [facility] a [facility] to live 03/24/2023 Sex and Gender Information Value Date Recorded Sex Assigned at Male 03/24/2023 10:10 PM CDT Gender Identity Male 03/24/2023 10:10 PM CDT Sexual Orientation Straight 03/24/2023 10 :10 PM CDT documented as of this encounter Consult Notes * Karen Martinez M.S., [facility] - 03/26/2023 2:00 PM CDT Images from the original note were not included. REFERRING PROVIDER Shoshana Delacruz M.D., Ph.D. CHIEF COMPLAINT Personal history of hypertrophic cardiomyopathy HISTORY OF PRESENT ILLNESS Shoshana Rinaldi is a delightful 57 y.o. male kindly referred today by Shoshana Delacruz M.D., Ph.D.due to his personal history of Hypertrophic Cardiomyopathy (HCM). Please see Dr. Delacruz's consult note for detailed information regarding work-up and diagnosis. Briefly, the patient was first diagnosed with HCM in 2012 at approximately age 48. The patient has sigmoid septal morphology with a maximum left ventricular wall thickness of 18 mm. He also has a history of paroxysmal atrial fibrillation status post ablation which was unsuccessful at resolving his symptoms. His history is also significant for coronary artery disease in the setting of hyperlipidemia, hypertension, and MIRTA currently on CPAP. Alpha galactosidase enzyme testing was pending. The patient attended today's consultation unaccompanied for genetic counseling to discuss the genetics and inheritance of HCM and to review screening recommendations and genetic testing options. The session was led today by genetic counseling student Sandi Olson under my direct supervision. FAMILY HISTORY A detailed family history was obtained from the patient and a pedigree was constructed. The pedigree will be saved as a scanned document and available for viewing under the Media tab of [facility]. Our risk assessment is based upon medical and family history information as provided by the patient, and may change in the future should new information be obtained. Relevant Summary - Mother due to unspecified heart issues at age 47. Mentioned she may have had Scarlet or rheumatic fever earlier in her life and required a bypass in her 30s. The remainder of the family history was non-contributory to today's discussion. There were no otherreported sudden deaths, single-vehicle car accidents, drowning incidents, recurrent syncope, implantable devices, or other symptoms/events suggestive of cardiomyopathy. Please see complete pedigree for additional detail. IMPRESSION/REPORT/PLAN Please see Dr. Delacruz's clinic note for further details pertaining to the Impression/Report/Plan. I had the pleasure of meeting Mr. Rinaldi to discuss his diagnosis of HCM and the screening recommendations for family members. I began my consultation with Mr. Rinaldi by reviewing the reason for his referral to [facility]. I discussed that my role in his process of care would be to evaluate for a single-gene hereditary susceptibility to HCM. Mr. Rinaldi understood and was interested in this consultation. PATIENT EDUCATION HCM is a common hereditary cardiac condition that causes hypertrophy of the muscle fibers of the heart resulting in thicker heart chamber pryor. This can reduce the heart's ability to pump blood effectively, which, in severe cases, can lead to heart failure or cardiac arrest. Common symptoms of HCMinclude shortness of breath, dizziness, fainting, palpitations, chest pain, and exercise intolerance. HCM affects approximately 1/500 individuals and affects both men and women. There is still much we do not know about all of the causes of HCM, but individuals without a family history of HCM or a causative gene mutation, it can be secondary to other underlying medical issues such as high blood pressure. Most cases of HCM are inherited through families and is due to a mutation in a gene that is important in creating the structural components of the heart. Genetic testing can sometimes identifythis gene mutation which can help guide screening of other family members for HCM. HCM is most often inherited in an autosomal dominant pattern meaning that first degree relatives have a 50% chance of also inheriting the gene mutation that predisposes them to developing HCM. Based on studies by Enrique et al. 2014 and Derek et al. 2016; an estimation of the probability of identifying a variant with genetic testing can be estimated using six clinical markers: age of diagnosis, maximum left ventricular thickness, family history of HCM, family history of sudden cardiac , reverse-curve morphology, and history of hypertension. The patient's score is -1. This means the likelihood of identifying a variant with genetic testing is approximately 6%. Additionally, the patient's septal morphology is noted to be sigmoid. In individuals with this septal morphology, it is estimated there is a 10% chance that a myofilament gene will be identified on genetic testing. Approximate cost and insurance coverage were discussed. Risks, benefits, and limitations of genetictesting were discussed. Implications of possible test results, including positive, negative, and variant of uncertain significance, were discussed. Any VUS identified would be reviewed. If there is not an increased concern for the VUS contributing to the patient's symptoms, it was stressed that testing for relatives would not be indicated. Mr. Rinaldi acknowledged understanding of the likelihood of finding a VUS and noted they were comfortable with this possibility. We discussed that there is recent evidence suggesting that multiple variants across tens or hundreds of genes may work jointly to increase an individual's risk of HCM along with environmental risk factors (Cabrera et al., 2021; Aracelier et al., 202). We are unable to offer clinical testing for this form of inheritance (polygenic and multifactorial) at this time. Therefore, even if Mr. Rinaldi does not have an identifiable HCM variant, we discussed that this does not rule out the possibility of a hereditary factor in his development of HCM. We also discussed the importance of family screening,regardless of any uncertain or negative genetic test results, which is described in detail below. FAMILY SCREENING Since the etiology of Mr. Rinaldi's diagnosis of HCM is currently unknown, cardiac screening for thepatient's first-degree relatives is recommended. Published guidelines state that screening for HCM should occur every 3-5 years for adults, annually for children, and every 1-3 years for adolescents (or earlier if a growth spurt or signs of puberty are evident and/or when there are plans for engaging in intense competitive sports or there is a family history of sudden ) (Joyce, 2018). It is also reasonable to screen the patient's second-degree relatives as well as other relatives at risk with or without symptoms before starting competitive sports (Enrique, 2009). Individuals who partici el in competitive athletics may also require more frequent screening, and should discuss this with their physicians. However, genetic testing can allow for a more cost-effective and informative means to screen familymembers. If a mutation is identified as the cause of Mr. Rinaldi's diagnosis of HCM, other family members can be tested for the mutation to determine whether they require increased cardiac screening. If the familial mutation is not identified in another family member, ongoing clinical screening would not be necessary. Early detection of HCM is important because it allows for appropriate surveillance and treatment initiation. Additionally, any family member who is experiencing cardiac or other symptoms should seek medical care. We encourage those seeking clinical evaluation or genetic testing to work with a physician or genetic counselor familiar with HCM to ensure appropriate interpretation and follow up of results. We would be happy to see family members here at [facility] or are available to identify resources closer to the individual's residence. PLAN Mr. Rinaldi elected to pursue the Comprehensive Cardiomyopathy & Arrhythmia Panel through [facility]. Mr. Rinaldi will complete a blood draw today. The laboratory will complete insurance pre-verification for testing and will contact the patient with his estimated [id number] cost. Results will become available approximately 3-4 weeks from the release of testing. The patient will be con tacted with his test results when they become available. Screening and management recommendations will be made for the patient and his family members at the time of results disclosure. It was a pleasure to meet Mr. Rinaldi. The patient expressed understanding of the information above.The impression and plan were discussed in detail. There were no apparent barriers to learning or understanding. Questions were answered to the best of my ability, and I remain available to answer anyadditional questions in the future. Total time: 30 minutes documented in this encounter Plan of Treatment Upcoming Encounters Date Type Department Care Team (Latest Contact Info) Description 10/06/2023 1:00 PM APPELLATE LAW CLERK Clinical Communication Virtual Review in [address] [phone] 10/09/2023 7:30 AM APPELLATE LAW CLERK Appointment Department of Cardiovascular Diseases in [address] [phone] Shoshana Delacruz M.D., Ph.D. [address] [place] [phone] Discharge Disposition: Home or Self Care 10/09/2023 9:15 AM APPELLATE LAW CLERK Appointment Department of Radiology, [facility], in [address] [phone] Shoshana Delacruz M.D., Ph.D. [address] [place] [phone] 10/09/2023 9:40 AM APPELLATE LAW CLERK Ancillary Procedure Department of Cardiovascular Medicine in [place], [place] [address] [place] [phone] Shoshana Delacruz M.D., Ph.D. [address] [place] [phone] 10/09/2023 10:15 AM APPELLATE LAW CLERK Office Visit Department of Cardiovascular Medicine in [place], [place] [address] [place] [phone] Shoshana Delacruz M.D., Ph.D. [address] [place] [phone] 10/09/2023 1:15 PM APPELLATE LAW CLERK Appointment Department of Cardiovascular Diseases in [place], [place] [address] [place] [phone] Shoshana Delacruz M.D., Ph.D. [address] [place] [phone] documented as of this encounter Visit Diagnoses Diagnosis Cardiomyopathy Obstructive Hypertrophic (HCC)- Primary documented in this encounter
--- OUTSIDE RECORDS SUMMARY | 2023-10-02 09:40 | XMS_ITS | Encounter Summary ---
Author Name Unknown Organization [facility] Address [address] [place] [phone] Care Team Providers Care Boiler Plant Worker Name Role Phone Unavailable Primary Care Provider Unavailabl e Encounter Details Date Type Department Care Team (Latest Contact Info) Description 03/25/2023 9:20 AM CDT - 03/25/2023 11:35 AM CDT Hospital Encounter Department of Laboratory Medicine and Pathology, [facility], in [place], [place] [address] [place] [address] Shoshana Delacruz M.D., Ph.D. [address] [place] [address] Cardiomyopathy Obstructive Hypertrophic (HCC) Discharge Disposition: Home [...] living situation today? I have a [facility] place to live 03/24/2023 Sex and [...] times a day with meals. 0 03/03/2023 L.acidoph-L.bulg-B.bif-S. therm (BACID) 1 billion cell- 250 mg [...] (Latest Contact Info) Description 10/06/2023 1:00 PM AUTOMATIC LINE SET UP MECHANIC Clinical Communication Virtual Review in [place], [place] 200 [place] [address] 10/09/2023 7:30 AM AUTOMATIC LINE SET UP MECHANIC Appointment Department of Cardiovascular Diseases in [place], [place] [address] [place] [phone] Shoshana Delacruz M.D., Ph.D. [address] [place] [phone] Discharge Disposition: Home or Self Care 10/09/2023 9:15 AM AUTOMATIC LINE SET UP MECHANIC Appointment Department of Radiology, [facility], in [place], [place] [address] [place] [phone] Shoshana Delacruz M.D., Ph.D. [address] [place] [phone] 10/09/2023 9:40 AM AUTOMATIC LINE SET UP MECHANIC Ancillary Procedure Department of Cardiovascular Medicine in [place], [place] [address] [place] [address] Shoshana Delacruz M.D., Ph.D. [address] [place] [phone] 10/09/2023 10:15 AM AUTOMATIC LINE SET UP MECHANIC Office Visit Department of Cardiovascular Medicine in [place], [place] [address] [place] [phone] Shoshana Delacruz M.D., Ph.D. [address] [place] [phone] 10/09/2023 1:15 PM AUTOMATIC LINE SET UP MECHANIC Appointment Department of Cardiovascular Diseases in [place], [place] [address] [place] [phone] Shoshana Delacruz M.D., Ph.D. [address] [place] [phone] documented as of this encounter Procedures Procedure Name Priority Date/Time Associated Diagnosis Comments MONOCLONAL GAMMOPATHY DIAGNOSTIC, S Routine 03/25/2023 9:48 AM CDT Cardiomyopathy Obstructive Hypertrophic (HCC) LIPID PANEL, S Routine 03/25/2023 9:48 AM CDT Cardiomyopathy Obstructive Hypertrophic (HCC) THYROID FUNCTION CASCADE, S Routine 03/25/2023 9:48 AM CDT Cardiomyopathy Obstructive Hypertrophic (HCC) ALPHA-GALACTOSIDASE, LEUKOCYTES Routine 03/25/2023 9:48 AM CDT Cardiomyopathy Obstructive Hypertrophic (HCC) NT-PRO B-TYPE NATRIURETIC PEPTIDE (BNP), S Routine 03/25/2023 9:48 AM CDT Cardiomyopathy Obstructive Hypertrophic (HCC) CBC WITH DIFFERENTIAL, B Routine 03/25/2023 9:48 AM CDT Cardiomyopathy Obstructive Hypertrophic (HCC) BUN (BLOOD UREA NITROGEN), S/P Routine 03/25/2023 9:48 AM CDT Cardiomyopathy Obstructive Hypertrophic (HCC) TROPONIN T, 5TH GEN, P Routine 03/25/2023 9:48 AM CDT Cardiomyopathy Obstructive Hypertrophic (HCC) SODIUM, S/P Routine 03/25/2023 9:48 AM CDT Cardiomyopathy Obstructive Hypertrophic (HCC) POTASSIUM, S/P Routine 03/25/2023 9:48 AM CDT Cardiomyopathy Obstructive Hypertrophic (HCC) GLUCOSE, FASTING, S/P Routine 03/25/2023 9:48 AM CDT Cardiomyopathy Obstructive Hypertrophic (HCC) CREATININE WITH EGFR, S/P Routine 03/25/2023 9:48 AM CDT Cardiomyopathy Obstructive Hypertrophic (HCC) CHLORIDE, S/P Routine 03/25/2023 9:48 AM CDT Cardiomyopathy Obstructive Hypertrophic (HCC) BICARBONATE, B/S/P Routine 03/25/2023 9: 48 AM CDT Cardiomyopathy Obstructive Hypertrophic (HCC) documented in this encounter Results * Troponin T, 5th Generation (03/25/2023 9:48 AM CDT) Troponin T, 5th gen 7 <=15 ng/L 03/25/2023 10:43 AM CDT DTL Blood (Blood, Venous) 03/25/2023 9:48 AM CDT 03/25/2023 10:24 AM CDT Shoshana Delacruz M.D., Ph.D. LAB BLOOD ADD-ON [facility] [place] [address] [place] [address], [place] [facility] [address] [place] [address] * Monoclonal Gammopathy Diagnostic (03/25/2023 9:48 AM CDT) [facility] Therapeutic Antibody Administered? No 03/25/2023 1:56 PM CDT [facility] Total Protein, S 7.1 6.3 - 7.9 g/dL 03/25/2023 2:29 PM CDT [facility] [place] Free Light Chain, S 1.75 0.3300 - 1.94 mg/dL 03/25/2023 2:39 PM CDT [facility] Lambda Free Light Chain, S 1.36 0.5700 - 2.63 mg/dL 03/25/2023 2:39 PM CDT [facility] [place]/Lambda FLC Ratio 1.29 0.2600 - 1.65 03/25/2023 2:39 PM CDT [facility] Albumin 3.6 3.4 - 4.7 g/dL 03/25/2023 10:07 PM CDT [facility] Alpha-1 Globulin 0.3 0.1 - 0.3 g/dL 03/25/2023 10:07 PM CDT [facility] Alpha-2 Globulin 1.0 0.6 - 1.0 g/dL 03/25/2023 10:07 PM CDT [facility] Beta-Globulin 1.2 0.7 - 1.2 g/dL 03/25/2023 10:07 PM CDT [facility] Gamma-Globulin 1.0 0.6 - 1.6 g/dL 03/25/2023 10:07 PM CDT [facility] A/G Ratio 1.01 03/25/2023 10:07 PM CDT [facility] Impression No apparent monoclonal protein on serum electrophore sis. See Isotype. 03/25/2023 10:07 PM CDT [facility] Flag, M-protein Isotype Negative Negative 03/26/2023 3:43 PM CDT [facility] M-protein Isotype MALDI-TOF MS No monoclonal protein detected. 03/26/2023 3:43 PM CDT [facility] Comment: ----ADDITIONAL INFORMATION---- The submitted sample was assayed by five separate immunopurifications for IgG, IgA, IgM, kappa and lambda. ??The result reflects the findings of either no monoclonal protein detected or those monoclonal immunoglobulins that were detected. This test was developed and its performance characteristics determined by [facility] in a manner consistent with CLIA requirements. This test has not been cleared or approved by the U.S. Food and Drug Administration. Blood (Blood, Venous) 03/25/2023 9:48 AM CDT 03/25/2023 1:55 PM CDT Narrative [facility] - 03/26/2023 3:43 PM CDT Specimen Information: Specimen ID: [id number] Specimen Type: Blood Specimen Collection Start Date: 03/25/2023 ??9:48 AM Specimen Received Date: 03/25/2023 ??1:55 PM Specimen ID: [id number] Specimen Type: Blood Specimen Collection Start Date: 03/25/2023 ??9:48 AM Specimen Received Date: 03/25/2023 ??1:56 PM Shoshana Delacruz M.D., Ph.D. LAB BLOOD ADD-ON Performing Organization Address City/[facility]/ZIP Co de Phone Number [facility] [address] [place], [place] [id number] [place] [address] [place] [address] [place] [facility] [place] [address] * NT-Pro B-Type Natriuretic Peptide (BNP) (03/25/2023 9:48 AM CDT) [facility] NT-Pro BNP 75 <=88 pg/mL 03/25/2023 10:49 AM CDT DTL Comment: NT-proBNP values less than 300 pg/mL have a 99% negative predictive value for excluding acute congestive heart failure. A cutoff of 1200 pg/mL for patients with an eGFR<60 yields a diagnostic sensitivity and specificity of 89% and 72% for acute congestive heart failure. A diagnostic NT-proBNP cutoff of 900 pg/mL has been suggested in adults 50-75 years of age in the absence of renal failure. Blood (Blood, Venous) 03/25/2023 9:48 AM CDT 03/25/2023 10:24 AM CDT Shoshana Delacruz M.D., Ph.D. LAB BLOOD ADD-ON [facility] [place] 200 [place] [address], [facility] DTL [facility] 200 [place] [address] * Alpha-Galactosidase, Leukocytes (03/25/2023 9:48 AM CDT) Pathologist [facility] Alpha-Galactosidas e, Leukocytes 28.78 >=10.32 nmol/h/m g Prot 03/31/2023 4:18 PM CDT DTL Reviewed By Vivek Daniels, Ph.D 03/31/2023 4:18 PM CDT DTL Interpretation *NEGATIVE* In this sample, the activity of alpha-galacto sidase was normal. These results indicate that this individual is NOT affected with Fabry disease. 03/31/2023 4:18 PM CDT DTL Comment: ----ADDITIONAL INFORMATION---- Flow Injection Analysis-Tandem Mass Spectrometry (RHODA-MS/MS) This test was developed and its performance characteristics determined by [facility] in a manner consistent with CLIA requirements. This test has not been cleared or approved by the U.S. Food and Drug Administration. Blood (Blood, Venous) 03/25/2023 9:48 AM CDT 03/25/2023 10:21 AM CDT Shoshana Delacruz M.D., Ph.D. LAB GENETI C TESTING [facility] [place] 200 [place] [address], [facility] DTL 200 [facility] 200 [place] [address] * BUN (Blood Urea Nitrogen) (03/25/2023 9:48 AM CDT) Pathologist [facility] BUN (Blood Urea Nitrogen), S 14 8 - 24 mg/dL 03/25/2023 10:49 AM CDT DTL Blood (Blood, Venous) 03/25/2023 9:48 AM CDT 03/25/2023 10:24 AM CDT Shoshana Delacruz M.D., Ph.D. LAB BLOOD ADD-ON [facility] [address] [place] [address], [facility] DTL [facility] [address] [place] [address] * (ABNORMAL) Lipid Panel (03/25/2023 9:48 AM CDT) Triglycerides 241(H) mg/dL 03/25/2023 10:49 AM CDT DTL Comment: ----REFERENCE VALUE---- Normal: <150 mg/dL Borderline High: 150-199 mg/dL High: 200-499 mg/dL Very High: > or =500 mg/dL Cholesterol, Total 160 mg/dL 2022 10:49 AM CDT DTL Comment: ----REFERENCE VALUE---- Desirable: < 200 mg/dL Borderline High: 200 - 239 mg/dL High: > or = 240 mg/dL Cholesterol, LDL, Calculated 70 mg/dL 03/25/2023 10:49 AM CDT DTL Comment: ----REFERENCE VALUE---- Desirable: <100 mg/dL Above Desirable: 100-129 mg/dL Borderline High: 130-159 mg/dL High: 160-189 mg/dL Very High: >=190 mg/dL ----ADDITIONAL INFORMATION---- LDL cholesterol calculated using the Davis/NIH equation. Cholesterol, HDL, S 51 >=40 mg/dL 03/25/2023 10:49 AM CDT DTL Cholesterol, Non-HDL, Calculated 109 mg/dL 03/25/2023 10:49 AM CDT DTL Comment: ----REFERENCE VALUE---- Desirable: <130 mg/dL Above Desirable: 130-159 mg/dL Borderline High: 160-189 mg/dL High: 190-219 mg/dL Very High: > or =220 mg/dL Fasting (8 HR or more) Yes 03/25/2023 10:24 AM CDT DTL Blood (Blood, Venous) 03/25/2023 9:48 AM CDT 03/25/2023 10:24 AM CDT Shoshana Delacruz M.D., Ph.D. LAB BLOOD ADD-ON Performing Organization Address City/[facility]/ZIP Co de Phone Number [facility] [place] [address] 200 [place] [address] * Thyroid Function [place] (03/25/2023 9:48 AM CDT) TSH, Sensitive 1.7 0.3 - 4.2 mIU/L 03/25/2023 10:49 AM CDT DTL Blood (Blood, Venous) 03/25/2023 9:48 AM CDT 03/25/2023 10:24 AM CDT Shoshana Delacruz M.D., Ph.D. LAB BLOOD ADD-ON Performing Organization Address City/[facility] Co de Phone Number [facility] [place] [address] [place], [place] [phone] [place] [address] 200 [place] [address] * (ABNORMAL) Glucose, Fasting (03/25/2023 9:48 AM CDT) Glucose, P 111(H) 70 - 100 mg/dL 03/25/2023 10:48 AM CDT DTL Last Intake 12 hr 03/25/2023 10:24 AM CDT DT Blood (Blood, Venous) 03/25/2023 9:48 AM CDT 03/25/2023 10:24 AM CDT Shoshana Delacruz M.D., Ph.D. LAB BLOOD NON ADD-ON Performing Organization Address City/[facility]/ZIP Co de Phone Number [facility] [place] [address] [place], [place] [phone] [place] [address] 200 [place] [address] * Potassium (03/25/2023 9:48 AM CDT) Potassium, S 4.2 3.6 - 5.2 mmol/L 03/25/2023 10:49 AM CDT DTL Blood (Blood, Venous) 03/25/2023 9:48 AM CDT 03/25/2023 10:24 AM CDT Shoshana Delacruz M.D., Ph.D. LAB BLOOD ADD-ON [facility] [place] [address] [place], [place] [phone] [place] [address] 200 [place] [address] * Sodium (03/25/2023 9:48 AM CDT) Sodium, S 143 135 - 145 mmol/L 03/25/2023 10:49 AM CDT DT Blood (Blood, Venous) 03/25/2023 9:48 AM CDT 03/25/2023 10:24 AM CDT Shoshana Delacruz M.D., Ph.D. LAB BLOOD ADD-ON Performing Organization Address City/[facility]/ZIP Co de Phone Number [facility] [place] [address] [place], [place] [phone] [place] [address] [address] [place] [address] * Bicarbonate (03/25/2023 9:48 AM CDT) Bicarbonate, S 27 22 - 29 mmol/L 03/25/2023 10:49 AM CDT DTL Blood (Blood, Venous) 03/25/2023 9:48 AM CDT 03/25/2023 10:24 AM CDT Shoshana Delacruz M.D., Ph.D. LAB BLOOD ADD-ON [facility] [place] [address] [place] [address], [facility] [address] [place] [address] * Chloride (03/25/2023 9:48 AM CDT) Chloride, S 106 98 - 107 mmol/L 03/25/2023 10:49 AM CDT DTL Blood (Blood, Venous) 03/25/2023 9:48 AM CDT 03/25/2023 10:24 AM CDT Shoshana Delacruz M.D., Ph.D. LAB BLOOD ADD-ON Performing Organization Address City/[facility] Co de Phone Number [facility] [place] 200 [place] [address], [facility] 200 [place] [address] * Creatinine with Estimated GFR (03/25/2023 9:48 AM CDT) Pathologist [facility] Creatinine 1.13 0.74 - 1.35 mg/dL 03/25/2023 10:49 AM CDT DTL Estimated GFR (eGFR) 77 >=60 mL/min/BSA 03/25/2023 10:49 AM CDT DTL Comment: Estimated GFR calculated using the 2020 CKD_EPI creatinine equation. Blood (Blood, Venous) 03/25/2023 9:48 AM CDT 03/25/2023 10:24 AM CDT Shoshana Delacruz M.D., Ph.D. LAB BLOOD ADD-ON Performing Organization Address City/[facility] Co de Phone Number [facility] [place] 200 [place] [address], [facility] 200 [place] [address] * (ABNORMAL) CBC with Differential, Blood (03/25/2023 9:48 AM CDT) Hemoglobin 14.0 13.2 - 16.6 g/dL 03/25/2023 10:23 AM CDT DTL Hematocrit 39.6 38.3 - 48.6 % 03/25/2023 10:23 AM CDT DTL Erythrocytes 4.24(L) 4.35 - 5.65 x10(12)/L 03/25/2023 10:23 AM CDT DTL MCV 93.4 78.2 - 97.9 fL 03/25/2023 10:23 AM CDT DTL RBC Distrib Width 13.5 11.8 - 14.5 % 03/25/2023 10:23 AM CDT DTL Platelet Count 243 135 - 317 x10(9)/L 03/25/2023 10:23 AM CDT DTL Leukocytes 7.5 3.4 - 9.6 x10(9)/L 03/25/2023 10:23 AM CDT DTL Neutrophils 4.41 1.56 - 6.45 x10(9)/L 03/25/2023 10:23 AM CDT DTL Lymphocytes 1.99 0.95 - 3.07 x10(9)/L 03/25/2023 10:23 AM CDT DTL Monocytes 0.69 0.26 - 0.81 x10(9)/L 03/25/2023 10:23 AM CDT DTL Eosinophils 0.27 0.03 - 0.48 x10(9)/L 03/25/2023 10:23 AM CDT DTL Basophils 0.09(H) 0.01 - 0.08 x10(9)/L 03/25/2023 10:23 AM CDT DTL Blood (Blood, Venous) 03/25/2023 9:48 AM CDT 03/25/2023 10:11 AM CDT Shoshana Delacruz M.D., Ph.D. LAB BLOOD ADD-ON [facility] [address] [place] [address], [facility] DTL [facility] [address] [place] [address] documented in this encounter Visit Diagnoses Diagnosis Cardiomyopathy Obstructive Hypertrophic (HCC) documented in this encounter
--- OUTSIDE RECORDS SUMMARY | 2023-10-02 09:40 | XMS_ITS | Encounter Summary ---
Author Name Unknown Organization [facility] Address [address] [place] [address] Care Team Providers Care Dog Track Kennel Manager Name Role Phone Unavailable Primary Care Provider Unavailabl e Encounter Details Date Type Department Care Team (Latest Contact Info) Description 03/26/2023 2:36 PM CDT - 03/26/2023 11:59 PM CDT Hospital Encounter Department of Laboratory Medicine and Pathology, [facility], in [place], [place] [address] [place] [address] Angel Maciel M.D. [address] [place] [address] Cardiomyopathy Obstructive Hypertrophic (HCC) Discharge Disposition: Home [...] your living situation today? I have a [facility] place to live 03/24/2023 Sex [...] times a day with meals. 0 03/03/2023 furosemide (LASIX) 20 mg tablet Take 0.5 tablets (10 mg total) by mouth daily. 45 tablet 3 03/26/2023 03/25/2024 Jackie Gardnertherm (BACID) 1 billion cell- 250 mg per tablet Take 1 tablet by mouth daily. 0 rivaroxaban (XARELTO) 20 mg tablet Take 20 mg by mouth daily with dinner. 0 01/25/2023 testosterone (ANDROGEL) 1.62 % (20.25 mg/1.25 gram) gel Place 20.25 mg on the skin daily. 2 PUMPS A DAY 0 07/19/2019 atorvastatin (LIPITOR) 80 mg tablet Take 80 mg by mouth daily. 0 11/28/2022 04/17/2023 metoprolol succinate (TOPROL-XL) 100 mg 24 hr tablet Take 100 mg by mouth daily. 0 01/25/2023 04/08/2023 metoprolol tartrate (LOPRESSOR) 50 mg tablet Take 50 mg by mouth as needed. 0 04/17/2023 valsartan (DIOVAN) 80 mg tablet Take 1 tablet (80 mg total) by mouth daily. 30 tablet 11 03/26/2023 03/27/2023 documented as of this encounter Plan of Treatment Upcoming Encounters Date Type Department Care Team (Latest Contact Info) Description 10/06/2023 1:00 PM CNC MILL PROGRAMMER Clinical Communication Virtual Review in [place], [place] 200 [place] [address] 10/09/2023 7:30 AM CNC MILL PROGRAMMER Appointment Department of Cardiovascular Diseases in [address] [phone] Shoshana Delacruz M.D., Ph.D. [address] [place] [phone] Discharge Disposition: Home or Self Care 10/09/2023 9:15 AM CNC MILL PROGRAMMER Appointment Department of Radiology, [facility], in [address] [phone] Shoshana Delacruz M.D., Ph.D. [address] [place] [phone] 10/09/2023 9:40 AM CNC MILL PROGRAMMER Ancillary Procedure Department of Cardiovascular Medicine in [place], [place] [address] [place] [address] Shoshana Delacruz M.D., Ph.D. [address] [place] [phone] 10/09/2023 10:15 AM CNC MILL PROGRAMMER Office Visit Department of Cardiovascular Medicine in [place], [place] [address] [place] [phone] Shoshana Delacruz M.D., Ph.D. [address] [place] [phone] 10/09/2023 1:15 PM CNC MILL PROGRAMMER Appointment Department of Cardiovascular Diseases in [place], [place] [address] [place] [phone] Shoshana Delacruz M.D., Ph.D. [address] [place] [phone] documented as of this encounter Procedures Procedure Name Priority Date/Time Associated Diagnosis Comments [facility] Routine 03/26/2023 3:00 PM CDT documented in this encounter Results * [facility] (03/26/2023 3:00 PM CDT) Test Name [employer] Arrythmia and Cardiomyopathy 03/27/2023 8:22 AM CDT INV Result SEE COMMENT 04/10/2023 9:08 AM CDT INV Comment: For final report, select Lab-Send Out Lab Results hyperlink below. 03/26/2023 3:00 PM CDT 03/27/2023 8:22 AM CDT Angel Maciel M.D. LAB [facility] ORDERABLES [facility] [address] [place] [phone] INV [facility] [address] [place] [phone] documented in this encounter Visit Diagnoses Diagnosis Cardiomyopathy Obstructive Hypertrophic (HCC) documented in this encounter
--- OUTSIDE RECORDS SUMMARY | 2023-10-02 09:40 | XMS_ITS | Encounter Summary ---
Author Name Unknown Organization [facility] Address [address] [place] [address] Care Team Providers Care Wash Crew Person Name Role Phone Unavailable Primary Care Provider Unavailabl e Reason for Visit * Reason Onset Date Comments Family Letter- HCM Screening 04/10/2023 Encounter Details Date Type Department Care Team (Latest Contact Info) Description 04/10/2023 Clinical Communication Department of Cardiovascular Medicine in [place], [place] [address] [place] [phone] Karen Martinez M.S., [facility] [address] [place] [address] Family Letter- HCM Screening Social History Tobacco Use Types Packs/Day Years [...] your living situation today? I have a [facility] place to live 03/24/2023 Sex and Gender Information Value Date Recorded Sex Assigned at Male 03/24/2023 10:10 PM CDT Gender Identity Male 03/24/2023 10:10 PM CDT Sexual Orientation Straight 03/24/2023 10 :10 PM CDT documented as of this encounter Plan of Treatment Upcoming Encounters Date Type Department Care Team (Latest Contact Info) Description 10/06/2023 1:00 PM VEHICLE DETAILER Clinical Communication Virtual Review in [place] [address] [place] [address] 10/09/2023 7:30 AM VEHICLE DETAILER Appointment Department of Cardiovascular Diseases in [place], [place] [address] [place] [phone] Shoshana Delacruz M.D., Ph.D. [address] [place] [phone] Discharge Disposition: Home or Self Care 10/09/2023 9:15 AM VEHICLE DETAILER Appointment Department of Radiology, [facility], in [place], [place] [address] [place] [phone] Shoshana Delacruz M.D., Ph.D. [address] [place] [phone] 10/09/2023 9:40 AM VEHICLE DETAILER Ancillary Procedure Department of Cardiovascular Medicine in [place], [place] [address] [place] [phone] Shoshana Delacruz M.D., Ph.D. [address] [place] [phone] 10/09/2023 10:15 AM VEHICLE DETAILER Office Visit Department of Cardiovascular Medicine in [place], [place] [address] [place] [phone] Shoshana Delacruz M.D., Ph.D. [address] [place] [phone] 10/09/2023 1:15 PM VEHICLE DETAILER Appointment Department of Cardiovascular Diseases in [place], [place] [address] [place] [phone] Shoshana Delacruz M.D., Ph.D. [address] [place] [phone] documented as of this encounter Visit Diagnoses Not on filedocumented in this encounter
--- OUTSIDE RECORDS SUMMARY | 2023-10-02 09:40 | XMS_ITS | Encounter Summary ---
Author Name Unknown Organization [facility] Address [address] [place] [address] Care Team Providers Care Hides Soaker Name Role Phone Unavailable Primary Care Provider Unavailabl e Reason for Visit * Reason Onset Date Comments CV [facility] : LB 04/09/2023 Encounter Details Date Type Department Care Team (Latest Contact Info) Description 04/09/2023 Clinical Communication Department of Medical Genetics in [place], [place] [address] [place] [address] José Luis Mcqueen [address] [place] [address] CV [facility] : LB Social History Tobacco Use Types Packs/Day Years [...] your living situation today? I have a [facility] place to live 03/24/2023 Sex and Gender Information Value Date Recorded Sex Assigned at Male 03/24/2023 10:10 PM CDT Gender Identity Male 03/24/2023 10:10 PM CDT Sexual Orientation Straight 03/24/2023 10 :10 PM CDT documented as of this encounter Plan of Treatment Upcoming Encounters Date Type Department Care Team (Latest Contact Info) Description 10/06/2023 1:00 PM STREETCAR REPAIRER HELPER Clinical Communication Virtual Review in [place], [place] [address] [place] [address] 10/09/2023 7:30 AM STREETCAR REPAIRER HELPER Appointment Department of Cardiovascular Diseases in [place], [place] [address] [place] [address] Shoshana Delacruz M.D., Ph.D. [address] [place] [phone] Discharge Disposition: Home or Self Care 10/09/2023 9:15 AM STREETCAR REPAIRER HELPER Appointment Department of Radiology, [facility], in [place], [place] [address] [place] [address] Shoshana Delacruz M.D., Ph.D. [address] [place] [phone] 10/09/2023 9:40 AM STREETCAR REPAIRER HELPER Ancillary Procedure Department of Cardiovascular Medicine in [place], [place] [address] [place] [address] Shoshana Delacruz M.D., Ph.D. [address] [place] [phone] 10/09/2023 10:15 AM STREETCAR REPAIRER HELPER Office Visit Department of Cardiovascular Medicine in [place], [place] [address] [place] [phone] Shoshana Delacruz M.D., Ph.D. [address] [place] [phone] 10/09/2023 1:15 PM STREETCAR REPAIRER HELPER Appointment Department of Cardiovascular Diseases in [place], [place] [address] [place] [address] Shoshana Delacruz M.D., Ph.D. [address] [place] [phone] documented as of this encounter Visit Diagnoses Not on filedocumented in this encounter
--- OUTSIDE RECORDS SUMMARY | 2023-10-02 09:40 | XMS_ITS | Encounter Summary ---
Author Name Unknown Organization [facility] Address [address] [place] [address] Care Team Providers Care Paper Slitter Name Role Phone Unavailable Primary Care Provider Unavailabl e Reason for Visit * Reason Comments Med Refill Encounter Details Date Type Department Care Team (Late st Contact Info) Description 04/08/2023 Refill Department of Cardiovascular Medicine in [place], [place] [address] [place] [phone] Shoshana Delacruz M.D., Ph.D. [address] [place] [address] Med Refill Social History Tobacco Use Types [...] your living situation today? I have a [facility] place to live 03/24/2023 Sex and Gender Information Value Date Recorded Sex Assigned at Male 03/24/2023 10:10 PM CDT Gender Identity Male 03/24/2023 10:10 PM CDT Sexual Orientation Straight 03/24/2023 10 :10 PM CDT documented as of this encounter Plan of Treatment Upcoming Encounters Date Type Department Care Team (Latest Contact Info) Description 10/06/2023 1:00 PM JUDICIAL CLERK Clinical Communication Virtual Review in [place], [place] [address] [place] [address] 10/09/2023 7:30 AM JUDICIAL CLERK Appointment Department of Cardiovascular Diseases in [place], [place] [address] [place] [phone] Shoshana Delacruz M.D., Ph.D. [address] [place] [phone] Discharge Disposition: Home or Self Care 10/09/2023 9:15 AM JUDICIAL CLERK Appointment Department of Radiology, [facility], in [place], [place] [address] [place] [phone] Shoshana Delacruz M.D., Ph.D. [address] [place] [phone] 10/09/2023 9:40 AM JUDICIAL CLERK Ancillary Procedure Department of Cardiovascular Medicine in [place], [place] [address] [place] [phone] Shoshana Delacruz M.D., Ph.D. [address] [place] [phone] 10/09/2023 10:15 AM JUDICIAL CLERK Office Visit Department of Cardiovascular Medicine in [place], [place] [address] [place] [phone] Shoshana Delacruz M.D., Ph.D. [address] [place] [phone] 10/09/2023 1:15 PM JUDICIAL CLERK Appointment Department of Cardiovascular Diseases in [place], [place] [address] [place] [phone] Shoshana Delacruz M.D., Ph.D. [address] [place] [phone] documented as of this encounter Visit Diagnoses Not on filedocumented in this encounter
--- OUTSIDE RECORDS SUMMARY | 2023-10-02 09:40 | XMS_ITS | Encounter Summary ---
Author Name Unknown Organization [facility] Address [address] [place] [address] Care Team Providers Care Classroom Aide Name Role Phone Unavailable Primary Care Provider Unavailabl e Encounter Details Date Type Department Care Team (Late st Contact Info) Description 03/25/2023 11:00 AM CDT Diagnostic Division of Pulmonary Medicine in [place], [place] [address] [place] [address] Shoshana Delacruz M.D., Ph.D. [address] [place] [address] Cardiomyopathy Obstructive Hypertrophic (HCC) Social History Tobacco Use Types Packs/Day [...] your living situation today? I have a [facility] place to live 03/24/2023 Sex and Gender Information Value Date Recorded Sex Assigned at Male 03/24/2023 10:10 PM CDT Gender Identity Male 03/24/2023 10:10 PM CDT Sexual Orientation Straight 03/24/2023 10 :10 PM CDT documented as of this encounter Plan of Treatment Upcoming Encounters Date Type Department Care Team (Latest Contact Info) Description 10/06/2023 1:00 PM BRANCH OPERATIONS MANAGER Clinical Communication Virtual Review in [place], [place] [address] [place] [address] 10/09/2023 7:30 AM BRANCH OPERATIONS MANAGER Appointment Department of Cardiovascular Diseases in [place], [place] [address] [place] [address] Shoshana Delacruz M.D., Ph.D. [address] [place] [phone] Discharge Disposition: Home or Self Care 10/09/2023 9:15 AM BRANCH OPERATIONS MANAGER Appointment Department of Radiology, [facility], in [place], [place] [address] [place] [phone] Shoshana Delacruz M.D., Ph.D. [address] [place] [phone] 10/09/2023 9:40 AM BRANCH OPERATIONS MANAGER Ancillary Procedure Department of Cardiovascular Medicine in [place], [place] [address] [place] [phone] Shoshana Delacruz M.D., Ph.D. [address] [place] [phone] 10/09/2023 10:15 AM BRANCH OPERATIONS MANAGER Office Visit Department of Cardiovascular Medicine in [place], [place] [address] [place] [phone] Shoshana Delacruz M.D., Ph.D. [address] [place] [phone] 10/09/2023 1:15 PM BRANCH OPERATIONS MANAGER Appointment Department of Cardiovascular Diseases in [place], [place] [address] [place] [phone] Shoshana Delacruz M.D., Ph.D. [address] [place] [phone] documented as of this encounter Procedures Procedure Name Priority Date/Time Associated Diagnosis Comments PUL HOME OVERNIGHT OXIMETRY Routine 03/25/2023 Cardiomyopathy Obstructive Hypertrophic (HCC) documented in this encounter Results * Home Overnight Oximetry (03/25/2023) 03/25/2023 Impressions [facility] - 03/26/2023 3:34 PM CDT This is an abnormal study with changes suggestive of a sleep-related breathing disorder. Physician: Larry Preston M.D. [id number] Narrative Procedure Note Larry Preston M.D. - 03/26/2023 IMPRESSION: This is an abnormal study with changes suggestive of a sleep-relatedbreathing disorder. Physician: Larry Preston M.D. [id number] Shoshana Delacruz M.D., Ph.D. [facility] Organization Address City/State/ZIP Co de Phone Number [facility] documented in this encounter Visit Diagnoses Diagnosis Cardiomyopathy Obstructive Hypertrophic (HCC) documented in this encounter
--- OUTSIDE RECORDS SUMMARY | 2023-10-02 09:40 | XMS_ITS | Encounter Summary ---
Author Name Unknown Organization [facility] Address [address] [place] [address] Care Team Providers Care Digital Advisor Name Role Phone Unavailable Primary Care Provider Unavailabl e Reason for Referral * Outpatient (Routine) - Authorized Specialty Diagnoses / Procedures Referred By Contac t Referred To Contact Diagnoses Cardiomyopathy Obstructive Hypertrophic (HCC) Procedures ECG Heart rhythm monitor (Holter) Shoshana Delacruz M.D., Ph.D. [address] [place] [phone] [facility] Referral ID Status Reason Start Date Expiration Date V isits Requested Visits Authorized [id number] Authorized 01/02/2023 01/02/2024 1 1 Reason for Visit * Outpatient (Routine) - Authorized Specialty Diagnoses / Procedures Referred By Contac t Referred To Contact Diagnoses Cardiomyopathy Obstructive Hypertrophic (HCC) Procedures ECG Heart rhythm monitor (Holter) Shoshana Delacruz M.D., Ph.D. [address] [place] [phone] [facility] Referral ID Status Reason Start Date Expiration Date V isits Requested Visits Authorized [id number] Authorized 01/02/2023 01/02/2024 1 1 Encounter Details Date Type Department Care Team (Latest Contact Info) Description 03/25/2023 1:13 PM CDT - 03/25/2023 6:14 PM CDT Hospital Encounter Department of Cardiovascular Diseases in [place], [place] [address] [place] [phone] Shoshana Delacruz M.D., Ph.D. [address] [place] [address] Cardiomyopathy Obstructive Hypertrophic (HCC) Discharge Disposition: Home [...] your living situation today? I have a [facility] place to live 03/24/2023 Sex and [...] times a day with meals. 0 03/03/2023 L.acidoph-L.mariaag-B.bif-S. therm (BACID) 1 billion cell- 250 mg [...] (Latest Contact Info) Description 10/06/2023 1:00 PM MANAGER MOLECULAR Clinical Communication Virtual Review in [place], [place] 200 [place] [address] 10/09/2023 7:30 AM MANAGER MOLECULAR Appointment Department of Cardiovascular Diseases in [address] [phone] Shoshana Delacruz M.D., Ph.D. [address] [place] [phone] Discharge Disposition: Home or Self Care 10/09/2023 9:15 AM MANAGER MOLECULAR Appointment Department of Radiology, [facility], in [address] [phone] Shoshana Delacruz M.D., Ph.D. [address] [place] [phone] 10/09/2023 9:40 AM MANAGER MOLECULAR Ancillary Procedure Department of Cardiovascular Medicine in [address] [phone] Shoshana Delacruz M.D., Ph.D. [address] [place] [phone] 10/09/2023 10:15 AM MANAGER MOLECULAR Office Visit Department of Cardiovascular Medicine in [address] [phone] Shoshana Delacruz M.D., Ph.D. [address] [place] [phone] 10/09/2023 1:15 PM MANAGER MOLECULAR Appointment Department of Cardiovascular Diseases in [address] [phone] Shoshana Delacruz M.D., Ph.D. [address] [place] [phone] documented as of this encounter Procedures Procedure Name Priority Date/Time Associated Diagnosis Comments HOLTER MONITOR - IN CLINIC NIGHT GUARD Routine 03/26/2023 5:17 PM CDT Cardiomyopathy Obstructive Hypertrophic (HCC) documented in this encounter Results * HOLTER MONITOR - IN CLINIC NIGHT GUARD (03/26/2023 5:17 PM CDT) Min Heart Rate 50 bpm INFOB IONIC MOME Max Heart Rate 113 bpm INFOB IONIC MOME Mean Heart Rate 67 bpm INFOBIONIC MOME VE Total Beats 4 count INFOB IONIC MOME VE Percent Beats less than 1 percent INFOBIONIC MOME SVE Total Beats 186 count INFOBIONIC MOME SVE Percent Beats less than 1 percent INFOBIONIC MOME AF Count 0 count INFOBIONIC MOME AF Duration 0 duration INFOBION IC MOME AF [place] 0 percent INFOBIONIC MOME Symptom Count 1 count INFOBI ONIC MOME 03/25/2023 1:47 PM CDT Narrative INFOBIONIC MOME - 03/27/2023 8:50 AM CDT 1. The basic rhythm was sinus with intermittent sinus arrhythmia and wandering atrial pacemaker. A single beat was noted with varying ventricular conduction. The total analyzed time was 22h 51m. The heart rate varied from 50 to 113 bpm. The average HR was 67 bpm. 2. Premature ventricular complexes were noted singly and in one 3-beat ventricular run at 126 bpm. There were 4 PVCs recorded with a PVC burden of less than 1%. 3. Premature supraventricular complexes were noted singly, aberrant, in couplets, in bigeminy and trigeminy, and in thirteen 3-30 beat atrial runs, at times with aberrancy with the maximum rate being 129 bpm. There were 186 PACs recorded with a PAC burden of less than 1%. 4. A total of 1 symptomatic event was noted. The basic rhythm was sinus at 73 bpm. There was one 3-beat ventricular run noted at 126 bpm at this time. Brick And Block Mason: Siri Gregg /Magdiel Raygoza Procedure Note Parmjit Skinner M.D., Ph.D. - 03/27/2023 1. The basic rhythm was sinus with intermittent sinus arrhythmia andwandering atrial pacemaker. A single beat was noted with varyingventricular conduction. The total analyzed time was 22h 51m. The heartrate varied from 50 to 113 bpm. The average HR was 67 bpm. 2. Premature ventricular complexes were noted singly and in one 3- beatventricular run at 126 bpm. There were 4 PVCs recorded with a PVC burdenof less than 1%. 3. Premature supraventricular complexes were noted singly, aberrant, incouplets, in bigeminy and trigeminy, and in thirteen 3-30 beat atrialruns, at times with aberrancy with the maximum rate being 129 bpm. Therewere 186 PACs recorded with a PAC burden of less than 1%. 4. A total of 1 symptomatic event was noted. The basic rhythm was sinus at73 bpm. There was one 3-beat ventricular run noted at 126 bpm at thistime. Brick And Block Mason: Siri Gregg /Magdiel Raygoza Shoshana Delacruz M.D., Ph.D. CV CARDIAC SERVICES PROCEDURES INFOBIONIC RICHARD LEMON documented in this encounter Visit Diagnoses Diagnosis Cardiomyopathy Obstructive Hypertrophic (HCC) documented in this encounter
--- OUTSIDE RECORDS SUMMARY | 2023-10-02 09:40 | XMS_ITS | Encounter Summary ---
Author Name Unknown Organization [facility] Address [address] [place] [address] Care Team Providers Care Rubber Printing Machine Operator Name Role Phone Unavailable Primary Care Provider Unavailabl e Reason for Referral * Outpatient (Routine) - Closed Specialty Diagnoses / Procedures Referred By Contac t Referred To Contact Diagnoses Cardiomyopathy Obstructive Hypertrophic (HCC) Procedures DX Chest AP or PA and Lateral 2 Views Shoshana Delacruz M.D., Ph.D. [address] [place] [phone] [facility] Referral ID Status Reason Start Date Expiration Date Visits Re quested Visits Authorized [id number] Closed 01/02/2023 01/02/2024 1 1 Reason for Visit * Outpatient (Routine) - Closed Specialty Diagnoses / Procedures Referred By Contac t Referred To Contact Diagnoses Cardiomyopathy Obstructive Hypertrophic (HCC) Procedures DX Chest AP or PA and Lateral 2 Views Shoshana Delacruz M.D., Ph.D. [address] [place] [phone] [facility] Referral ID Status Reason Start Date Expiration Date Visits Re quested Visits Authorized [id number] Closed 01/02/2023 01/02/2024 1 1 Encounter Details Date Type Department Care Team (Latest Contact Info) Description 03/25/2023 8:16 AM CDT - 03/25/2023 9:19 AM CDT Hospital Encounter Department of Radiology, [facility], in [place], [place] [address] [place] [phone] Shoshana Delacruz M.D., Ph.D. 200 [place] [address] Cardiomyopathy Obstructive Hypertrophic (HCC) Discharge Disposition: Home [...] your living situation today? I have a [facility] place to live 03/24/2023 Sex and [...] times a day with meals. 0 03/03/2023 L.acidoph-Ljuliang-B.bif-S. therm (BACID) 1 billion cell- 250 mg [...] Contact Info) Description 10/06/2023 1:00 PM SENIOR RESEARCH ANALYST Clinical Communication Virtual Review in [place], [place] 200 [place] [address] 10/09/2023 7:30 AM SENIOR RESEARCH ANALYST Appointment Department of Cardiovascular Diseases in [address] [phone] Shoshana Delacruz M.D., Ph.D. [address] [place] [phone] Discharge Disposition: Home or Self Care 10/09/2023 9:15 AM SENIOR RESEARCH ANALYST Appointment Department of Radiology, [facility], in [address] [phone] Shoshana Delacruz M.D., Ph.D. [address] [place] [phone] 10/09/2023 9:40 AM SENIOR RESEARCH ANALYST Ancillary Procedure Department of Cardiovascular Medicine in [address] [phone] Shoshana Delacruz M.D., Ph.D. [address] [place] [phone] 10/09/2023 10:15 AM SENIOR RESEARCH ANALYST Office Visit Department of Cardiovascular Medicine in [address] [phone] Shoshana Delacruz M.D., Ph.D. [address] [place] [phone] 10/09/2023 1:15 PM SENIOR RESEARCH ANALYST Appointment Department of Cardiovascular Diseases in [address] [phone] Shoshana Delacruz M.D., Ph.D. [address] [place] [phone] documented as of this encounter Procedures Procedure Name Priority Date/Time Associated Diagnosis Comments DX CHEST AP OR PA AND LATERAL 2 VIEWS RAD - Routine (most inpatients and all outpatients) 03/25/2023 8:30 AM CDT Cardiomyopathy Obstructive Hypertrophic (HCC) documented in this encounter Results * DX Chest AP or PA and Lateral 2 Views (03/25/2023 8:30 AM CDT) Anatomical Region Laterality Modality Chest, Thoracic RST LOS, Tho racic ARZ LOS, Thoracic FLA LOS N/A Digital Radiography 03/25/2023 8:55 AM CDT Impressions 03/25/2023 8:57 AM CDT No radiographic comparison. Normal cardiac silhouette size. Small fat pad at the cardiac apex. Chest otherwise negative. Surgical clips RUQ. Narrative 03/25/2023 8:57 AM CDT EXAM: ??DX CHEST AP OR PA AND LATERAL 2 VIEWS Procedure Note Jeffrey Osorio M.D. - 03/25/2023 EXAM: DX CHEST AP OR PA AND LATERAL 2 VIEWS IMPRESSION: No radiographic comparison. Normal cardiac silhouette size. Small fat padat the cardiac apex. Chest otherwise negative. Surgical clips RUQ. Shoshana Delacruz M.D., Ph.D. IMG DIAGNO STIC IMAGING PROCEDURES documented in this encounter Visit Diagnoses Diagnosis Cardiomyopathy Obstructive Hypertrophic (HCC) documented in this encounter
--- OUTSIDE RECORDS SUMMARY | 2023-10-02 09:41 | XMS_ITS | Encounter Summary ---
Author Name Unknown Organization [facility] Address [address] [place] [address] Care Team Providers Care Interline Clerk Name Role Phone Unavailable Primary Care Provider Unavailabl e Reason for Visit * Reason Onset Date Comments Pre-visit Intake 03/19/2023 Encounter Details Date Type Department Care Team (Latest Contact Info) Description 03/19/2023 11:15 AM CDT Clinical Communication Virtual Review in [address] [address] Pre-visit Intake Social History Tobacco Use Types Packs/Day Years Used Date Smoking Tobacco: Former Cigarettes 1.5 10 Cigars Smokeless Tobacco: Never Tobacco Cessation:Counseling Given: Not Answered Nutrition Answer Date Recorded Nutrition: EVOO Fat Source Unknown 02/24 Nutrition: Servings of Fruits/Vegetables per Day Not on file 02/24/2023 Dental Answer Date Recorded Dental: Regular Dentist Unknown 02/25/20 Sex and Gender Information Value Date Recorded Sex Assigned at Male 03/24/2023 10:10 PM CDT Gender Identity Male 03/24/2023 10:10 PM CDT Sexual Orientation Straight 03/24/2023 10 :10 PM CDT documented as of this encounter Plan of Treatment Upcoming Encounters Date Type Department Care Team (Latest Contact Info) Description 10/06/2023 1:00 PM SCREENER AND BLENDER OPERATOR Clinical Communication Virtual Review in [address] [address] 10/09/2023 7:30 AM SCREENER AND BLENDER OPERATOR Appointment Department of Cardiovascular Diseases in [place], [place] [address] [place] [phone] Shoshana Delacruz M.D., Ph.D. [address] [place] [phone] Discharge Disposition: Home or Self Care 10/09/2023 9:15 AM SCREENER AND BLENDER OPERATOR Appointment Department of Radiology, [facility], in [place], [place] [address] [place] [address] Shoshana Delacruz M.D., Ph.D. [address] [place] [phone] 10/09/2023 9:40 AM SCREENER AND BLENDER OPERATOR Ancillary Procedure Department of Cardiovascular Medicine in [place], [place] [address] [place] [phone] Shoshana Delacruz M.D., Ph.D. [address] [place] [phone] 10/09/2023 10:15 AM SCREENER AND BLENDER OPERATOR Office Visit Department of Cardiovascular Medicine in [place], [place] [address] [place] [phone] Shoshana Delacruz M.D., Ph.D. [address] [place] [phone] 10/09/2023 1:15 PM SCREENER AND BLENDER OPERATOR Appointment Department of Cardiovascular Diseases in [place], [place] [address] [place] [phone] Shoshana Delacruz M.D., Ph.D. [address] [place] [phone] documented as of this encounter Visit Diagnoses Not on filedocumented in this encounter
--- OUTSIDE RECORDS SUMMARY | 2023-10-02 09:41 | XMS_ITS | Encounter Summary ---
Author Name Unknown Organization [facility] Address [address] [place] [address] Care Team Providers Care Calliope Player Name Role Phone Unavailable Primary Care Provider Unavailabl e Reason for Referral * MRI/CAT/PET Scan (Routine) - Closed Specialty Diagnoses / Procedures Referred By Contac t Referred To Contact Radiology Diagnoses Cardiomyopathy Obstructive Hypertrophic (HCC) Procedures MR Cardiac without and with IV Contrast Shoshana Delacruz M.D., Ph.D. [address] [place] [phone] [facility] Referral ID Status Reason Start Date Expiration Date Visits Re quested Visits Authorized [id number] Closed 03/06/2023 05/04/2023 1 1 * Outpatient (Routine) - Closed Specialty Diagnoses / Procedures Referred By Contac t Referred To Contact Clinical Genomics Diagnoses Cardiomyopathy Obstructive Hypertrophic (HCC) Shoshana Delacruz M.D., Ph.D. [address] [place] [phone] [facility] Referral ID Status Reason Start Date Expiration Date Visits Re quested Visits Authorized [id number] Closed 01/02/2023 01/02/2024 1 1 * Outpatient (Routine) - Closed Specialty Diagnoses / Procedures Referred By Contac t Referred To Contact Diagnoses Cardiomyopathy Obstructive Hypertrophic (HCC) Procedures Echo Transthoracic (TTE) Giudicessi, Shoshana R, M.D., Ph.D. [address] [place] [phone] [facility] Referral ID Status Reason Start Date Expiration Date Visits Re quested Visits Authorized [id number] Closed 01/02/2023 01/02/2024 1 1 * Outpatient (Routine) - Authorized Specialty Diagnoses / Procedures Referred By Contac t Referred To Contact Diagnoses Cardiomyopathy Obstructive Hypertrophic (HCC) Procedures ECG Heart rhythm monitor (Holter) Shoshana Delacruz M.D., Ph.D. [address] [place] [phone] [facility] Referral ID Status Reason Start Date Expiration Date V isits Requested Visits Authorized [id number] Authorized 01/02/2023 01/02/2024 1 1 * Outpatient (Routine) - Closed Specialty Diagnoses / Procedures Referred By Contac t Referred To Contact Diagnoses Cardiomyopathy Obstructive Hypertrophic (HCC) Procedures DX Chest AP or PA and Lateral 2 Views Shoshana Delacruz M.D., Ph.D. [address] [place] [phone] [facility] Referral ID Status Reason Start Date Expiration Date Visits Re quested Visits Authorized [id number] Closed 01/02/2023 01/02/2024 1 1 * Outpatient (Routine) - Closed Specialty Diagnoses / Procedures Referred By Contac t Referred To Contact Diagnoses Cardiomyopathy Obstructive Hypertrophic (HCC) Procedures ECG 12 Lead Shoshana Delacruz M.D., Ph.D. [address] [place] [phone] [facility] Referral ID Status Reason Start Date Expiration Date Visits Re quested Visits Authorized [id number] Closed 01/02/2023 01/02/2024 1 1 Encounter Details Date Type Department Care Team (Latest Contact Info) Description 01/02/2023 Orders Only Department of Cardiovascular Medicine in [place], [place] [address] [place] [phone] Shoshana Delacruz M.D., Ph.D. [address] [place] [phone] Cardiomyopathy Obstructive Hypertrophic (HCC) (Primary Dx) Social History Tobacco Use Types Packs/Day Years Used Date Smoking Tobacco: Never Assessed Nutrition Answer Date Recorded Nutrition: EVOO Fat Source Unknown 11/17 Nutrition: Servings of Fruits/Vegetables per Day Not on file 11/17/2020 Dental Answer Date Recorded Dental: Regular Dentist Unknown 11/18/19 21 Sex and Gender Information Value Date Recorded Sex Assigned at Male 03/24/2023 10:10 PM CDT Gender Identity Male 03/24/2023 10:10 PM CDT Sexual Orientation Straight 03/24/2023 10 :10 PM CDT documented as of this encounter Plan of Treatment Upcoming Encounters Date Type Department Care Team (Latest Contact Info) Description 10/06/2023 1:00 PM GAS STATION MANAGER Clinical Communication Virtual Review in [place], [place] 200 [place] [address] 10/09/2023 7:30 AM GAS STATION MANAGER Appointment Department of Cardiovascular Diseases in [place], [place] [address] [place] [phone] Shoshana Delacruz M.D., Ph.D. [address] [place] [phone] Discharge Disposition: Home or Self Care 10/09/2023 9:15 AM GAS STATION MANAGER Appointment Department of Radiology, [facility], in [place], [place] [address] [place] [phone] Shoshana Delacruz M.D., Ph.D. [address] [place] [phone] 10/09/2023 9:40 AM GAS STATION MANAGER Ancillary Procedure Department of Cardiovascular Medicine in [place], [place] [address] [place] [phone] Shoshana Delacruz M.D., Ph.D. [address] [place] [phone] 10/09/2023 10:15 AM GAS STATION MANAGER Office Visit Department of Cardiovascular Medicine in [place], [place] [address] [place] [phone] Shoshana Delacruz M.D., Ph.D. [address] [place] [phone] 10/09/2023 1:15 PM GAS STATION MANAGER Appointment Department of Cardiovascular Diseases in [place], [place] [address] [place] [phone] Shoshana Delacruz M.D., Ph.D. [address] [place] [phone] Scheduled Referrals Name Type Priority Associated Diagnoses Orde r Schedule Clinical Genomics - Cardiology counseling consult (clinic) Outpatient Referral Routine Cardiomyopathy Obstructive Hypertrophic (HCC) Expected: 03/25/2023, Expires: 03/25/2025 documented as of this encounter Results * HOLTER MONITOR - IN CLINIC BELT SEWER (03/26/2023 5:17 PM CDT) Min Heart Rate [...] Duration 0 duration INFOBION IC MOME AF [place] 0 percent INFOBIONIC MOME Symptom Count 1 count INFOBI ONILAN MOME 03/25/2023 1:47 PM CDT Narrative INFOSINGHNIC MOME - 03/27/2023 8:50 AM CDT 1. [...] noted at 126 bpm at this time. Vacation Planner: Siri Gregg /Magdiel Raygoza Procedure Note Parmjit [...] run noted at 126 bpm at thistime. Vacation Planner: Siri Gregg /Magdiel Raygoza Shoshana Delacruz M.D., Ph.D. CV CARDIAC SERVICES PROCEDURES INFOBIONIC MOME NA * (TTE) 2D ECHO DOPPLER COLOR (03/25/2023 [...] collapse (>50%). No pericardial effusion. Procedure Note Jeo Cade M.D. - 03/25/2023 For the complete [...] Documents. Shoshana Delacruz M.D., Ph.D. CV ECHO AK OCEDURES * MR Cardiac without and with IV Contrast (03/25/2023 1:05 PM CDT) Anatomical Region Laterality Modality Cardiac, Cardiovascular RST LOS, Thoracic ARZ LOS, Cardiovascular FLA LOS N/A Magnetic Resonance 03/25/2023 12:4 9 PM CDT Impressions 03/25/2023 2:05 PM CDT 1. Findings consistent with sigmoid morphologic subtype hypertrophic cardiomyopathy. Maximal end-diastolic myocardial thickness = 18 mm. 2. No definite abnormal delayed myocardial enhancement. . 3. Normal left and reticular size and systolic function. LVEF = 57%. 4. Left atrial enlargement. Narrative 03/25/2023 2:05 PM CDT EXAM: ??MR CARDIAC WITHOUT AND WITH IV CONTRAST COMPARISON: ??No prior cardiac MRI available at the time of dictation. FINDINGS: ?? LEFT VENTRICLE: Asymmetric hypertrophy of the left ventricle, most prominent involving the basal anterior septum. Findings are consistent with the sigmoid subtype of hypertrophic cardiomyopathy. * ??Maximal wall thickness (measured in diastole): ??18 mm at the basal anterior septum (measured on series 101; images 88, 118). * ??Left ventricular outflow tract obstruction: Present, mild. * ??Systolic anterior motion of the mitral valve: Chordal systolic anterior motion is present. * ??Mitral regurgitation: Not visualized. * ??Late gadolinium enhancement: Respiratory motion artifact mildly limits assessment. No definite abnormal myocardial late gadolinium enhancement * ??Location of most significant late gadolinium enhancement (if applicable): Not applicable Other Left Ventricular Findings: Normal left ventricular chamber size. No regional wall motion abnormalities. Left ventricular ejection fraction = 57%. No resting first pass myocardial perfusion defects. Normal myocardial nulling kinetics on the cine IR. RIGHT VENTRICLE: Normal right ventricular size, myocardial thickness, and systolic function. Right ventricular ejection fraction = 50%. No definite abnormal late gadolinium enhancement. ATRIA: Left atrial enlargement. Normal right atrial size. PERICARDIUM: Normal pericardial thickness. No pericardial effusion. ADDITIONAL FINDINGS: ?? Bilateral renal cysts. Cholecystectomy. MEASUREMENTS: Patient weight: 110 kg Patient height: 177 cm BSA: 2.3 m2 Series 10: LEFT VENTRICLE: LV End Diastolic Volume = 107mL; Index = 46mL/m2 (normal = 55-115) LV End Systolic Volume = 46mL; Index = 20mL/m2 (normal = 20-52) LV Stroke Volume = 61mL; Index = 26mL/m2 (normal = 29-69) LV Ejection Fraction = 57% (normal = 48-68) LV End Diastolic Mass = 190g; Index = 82g/m2 (normal = 35-71) Series 10: RIGHT VENTRICLE: RV End Diastolic Volume = 137mL; Index = 59mL/m2 (normal = 59-127) RV End Systolic Volume = 68mL; Index = 29mL/m2 (normal = 21-65) RV Stroke Volume = 69mL; Index = 30mL/m2 (normal = 32-68) RV Ejection Fraction = 50% (normal = 42-66) Procedure Note Juan Jose Booker M.D. - 03/25/2023 EXAM: MR CARDIAC WITHOUT AND WITH IV CONTRAST COMPARISON: No prior cardiac MRI available at the time of dictation. FINDINGS: LEFT VENTRICLE: Asymmetric hypertrophy of the left ventricle, most prominent involving thebasal anterior septum. Findings are consistent with the sigmoid subtype of hypertrophiccardiomyopathy. * Maximal wall thickness (measured in diastole): 18 mm at the basalanterior septum (measured on series 101; images 88, 118). * Left ventricular outflow tract obstruction: Present, mild. * Systolic anterior motion of the mitral valve: Chordal systolic anteriormotion is present. * Mitral regurgitation: Not visualized. * Late gadolinium enhancement: Respiratory motion artifact mildly limitsassessment. No definite abnormal myocardial late gadolinium enhancement * Location of most significant late gadolinium enhancement (ifapplicable): Not applicable Other Left Ventricular Findings: Normal left ventricular chamber size. No regional wall motionabnormalities. Left ventricular ejection fraction = 57%. No resting first pass myocardial perfusiondefects. Normal myocardial nulling kinetics on the cine IR. RIGHT VENTRICLE: Normal right ventricular size, myocardial thickness, and systolicfunction. Right ventricular ejection fraction = 50%. No definite abnormal late gadoliniumenhancement. ATRIA: Left atrial enlargement. Normal right atrial size. PERICARDIUM: Normal pericardial thickness. No pericardial effusion. ADDITIONAL FINDINGS: Bilateral renal cysts. Cholecystectomy. MEASUREMENTS: Patient weight: 110 kg Patient height: 177 cm BSA: 2.3 m2 Series 10: LEFT VENTRICLE: LV End Diastolic Volume = 107mL; Index = 46mL/m2 (normal = 55-115) LV End Systolic Volume = 46mL; Index = 20mL/m2 (normal = 20-52) LV Stroke Volume = 61mL; Index = 26mL/m2 (normal = 29-69) LV Ejection Fraction = 57% (normal = 48-68) LV End Diastolic Mass = 190g; Index = 82g/m2 (normal = 35-71) Series 10: RIGHT VENTRICLE: RV End Diastolic Volume = 137mL; Index = 59mL/m2 (normal = 59-127) RV End Systolic Volume = 68mL; Index = 29mL/m2 (normal = 21-65) RV Stroke Volume = 69mL; Index = 30mL/m2 (normal = 32-68) RV Ejection Fraction = 50% (normal = 42-66) IMPRESSION: 1. Findings consistent with sigmoid morphologic subtype hypertrophiccardiomyopathy. Maximal end-diastolic myocardial thickness = 18 mm. 2. No definite abnormal delayed myocardial enhancement. . 3. Normal left and reticular size and systolic function. LVEF = 57%. 4. Left atrial enlargement. Shoshana Delacruz M.D., Ph.D. G MRI AK OCEDURES * Troponin T, 5th Generation (03/25/2023 9:48 AM CDT) Troponin T, 5th gen 7 <=15 ng/L 03/25/2023 10:43 AM CDT DTL Blood (Blood, Venous) 03/25/2023 9:48 AM CDT 03/25/2023 10:24 AM CDT Shoshana Delacruz M.D., Ph.D. LAB BLOOD ADD-ON [facility] [address] [place] [address], [facility] [address] [place] [address] * Monoclonal Gammopathy Diagnostic (03/25/2023 9:48 AM CDT) Pathologist [facility] Therapeutic Antibody Administered? No 03/25/2023 1:56 PM CDT [facility] Total Protein, S 7.1 6.3 - 7.9 g/dL 03/25/2023 2:29 PM CDT [facility] [place] Free Light Chain, S 1.75 0.3300 - 1.94 mg/dL 03/25/2023 2:39 PM CDT [facility] Lambda Free Light Chain, S 1.36 0.5700 - 2.63 mg/dL 03/25/2023 2:39 PM CDT [facility] [place]/Lambda FLC Ratio 1.29 0.2600 - 1.65 03/25/2023 [...] Isotype Negative Negative 03/26/2023 3:43 PM CDT [facility] M-protein Isotype MALDI-TOF MS No monoclonal protein detected. 03/26/2023 3:43 PM CDT [facility] Comment: ----ADDITIONAL INFORMATION---- The submitted sample was assayed by five separate immunopurifications for IgG, IgA, IgM, kappa and lambda. ??The result reflects the findings of either no monoclonal protein detected or those monoclonal immunoglobulins that were detected. This test was developed and its performance characteristics determined by [facility] in a manner consistent with CLIA requirements. This test has not been cleared or approved by the U.S. Food and Drug Administration. Blood (Blood, Venous) 03/25/2023 9:48 AM CDT 03/25/2023 1:55 PM CDT Narrative [facility] - 03/26/2023 3:43 PM CDT Specimen Information: Specimen ID: [id number] Specimen Type: Blood Specimen Collection Start Date: 03/25/2023 ??9:48 AM Specimen Received Date: 03/25/2023 ??1:55 PM Specimen ID: [id number] Specimen Type: Blood Specimen Collection Start Date: 03/25/2023 ??9:48 AM Specimen Received Date: 03/25/2023 ??1:56 PM Shoshana Delacruz M.D., Ph.D. LAB BLOOD ADD-ON [facility] [address] [place] [address] [facility] [address] [place] [address] [place] [facility] [place] [address] * NT-Pro B-Type Natriuretic Peptide (BNP) (03/25/2023 9:48 AM CDT) [facility] NT-Pro BNP 75 <=88 pg/mL 03/25/2023 10:49 [...] Ph.D. LAB BLOOD ADD-ON Performing Organization Address [facility] Co de Phone Number [facility] [address] [place] [address], [facility] DTL [facility] [address] [place] [address] * Alpha-Galactosidase, Leukocytes (03/25/2023 9:48 AM CDT) Pathologist [facility] Department Alpha-Galactosidas e, Leukocytes 28.78 >=10.32 nmol/h/m g [...] and its performance characteristics determined by [facility] in a manner consistent with CLIA requirements. This test has not been cleared or approved by the U.S. Food and Drug Administration. Blood (Blood, Venous) 03/25/2023 9:48 AM CDT 03/25/2023 10:21 AM CDT Shoshana Delacruz M.D., Ph.D. LAB GENETI C TESTING Performing Organization Address [facility] Co de Phone Number [facility] [address] [place] [address], [facility] DTL [address] [facility] 200 [place] [address] * BUN (Blood Urea Nitrogen) (03/25/2023 9:48 AM CDT) BUN (Blood Urea Nitrogen), S 14 8 - 24 mg/dL 03/25/2023 10:49 AM CDT DTL Blood (Blood, Venous) 03/25/2023 9:48 AM CDT 03/25/2023 10:24 AM CDT Shoshana Delacruz M.D., Ph.D. LAB BLOOD ADD-ON [facility] [address] [place] [address], [facility] [address] [place] [address] * (ABNORMAL) Lipid Panel (03/25/2023 9:48 AM CDT) Pathologist [facility] Department Triglycerides 241(H) mg/dL 03/25/2023 10:49 AM CDT [...] Shoshana Delacruz M.D., Ph.D. [place] [address] * Thyroid Function [place] (03/25/2023 9:48 AM CDT) TSH, Sensitive 1.7 0.3 - 4.2 mIU/L 03/25/2023 10:49 AM CDT DTL Blood (Blood, Venous) 03/25/2023 9:48 AM CDT 03/25/2023 10:24 AM CDT Shoshana Delacruz M.D., Ph.D. [place] [address] * (ABNORMAL) Glucose, Fasting (03/25/2023 9:48 AM CDT) Glucose, P 111(H) 70 - 100 mg/dL 03/25/2023 10:48 AM CDT DTL Last Intake 12 hr 03/25/2023 10:24 AM CDT DTL Blood (Blood, Venous) 03/25/2023 9:48 AM CDT 03/25/2023 10:24 AM CDT Shoshana Delacruz M.D., Ph.D. LAB BLOOD NON ADD-ON Performing Organization Address City/[facility]/ZIP Co de Phone Number [facility] [address] [place] [address], [facility] [address] [place] [address] * Potassium (03/25/2023 9:48 AM CDT) Potassium, S 4.2 3.6 - 5.2 mmol/L 03/25/2023 10:49 AM CDT DTL Blood (Blood, Venous) 03/25/2023 9:48 AM CDT 03/25/2023 10:24 AM CDT Shoshana Delacruz M.D., Ph.D. LAB BLOOD ADD-ON Performing Organization Address City/[facility]/ZIP Co de Phone Number [facility] [address] [place] [address], [facility] [address] [place] [address] * Sodium (03/25/2023 9:48 AM CDT) Sodium, S 143 135 - 145 mmol/L 03/25/2023 10:49 AM CDT DTL Blood (Blood, Venous) 03/25/2023 9:48 AM CDT 03/25/2023 10:24 AM CDT Shoshana Delacruz M.D., Ph.D. LAB BLOOD ADD-ON Performing Organization Address City/[facility]/ZIP Co de Phone Number [facility] [address] [place], [place] [address] [address] [place] [address] * Bicarbonate (03/25/2023 9:48 AM CDT) Bicarbonate, S 27 22 - 29 mmol/L 03/25/2023 10:49 AM CDT DTL Blood (Blood, Venous) 03/25/2023 9:48 AM CDT 03/25/2023 10:24 AM CDT Shoshana Delacruz M.D., Ph.D. LAB BLOOD ADD-ON [facility] [address] [place] [address], [facility] [address] [place] [address] * Chloride (03/25/2023 9:48 AM CDT) Chloride, S 106 98 - 107 mmol/L 03/25/2023 10:49 AM CDT DTL Blood (Blood, Venous) 03/25/2023 9:48 AM CDT 03/25/2023 10:24 AM CDT Shoshana Delacruz M.D., Ph.D. LAB BLOOD ADD-ON Performing Organization Address City/[facility]/ZIP Co de Phone Number [facility] [address] [place] [address], [facility] [address] [place] [address] * Creatinine with Estimated GFR (03/25/2023 9:48 AM CDT) Creatinine 1.13 0.74 - 1.35 mg/dL 03/25/2023 10:49 AM CDT DTL Estimated GFR (eGFR) 77 >=60 mL/min/BSA 03/25/2023 10:49 AM CDT DTL Comment: Estimated GFR calculated using the 2020 CKD_EPI creatinine equation. Blood (Blood, Venous) 03/25/2023 9:48 AM CDT 03/25/2023 10:24 AM CDT Shoshana Delacruz M.D., Ph.D. LAB BLOOD ADD-ON [facility] [address] [place] [address], [facility] DTL [facility] [address] [place] [address] * (ABNORMAL) CBC with Differential, Blood (03/25/2023 [...] Shoshana Delacruz M.D., Ph.D. LAB BLOOD ADD-ON [facility] [address] [place] [address], [facility] DTL [facility] [address] [place] [address] * ECG 12 Lead (03/25/2023 9:08 AM CDT) Ventricular Rate ECG/Min 57 BPM MUSE AK Interval 174 ms MUSE QRSD Interval 106 ms MUSE QT Interval 468 ms MUSE QTC Interval 455 ms MUSE P [place] 32 degrees MUSE R [place] -1 degrees MUSE T Wave [place] 80 degrees MUSE 03/25/2023 9:08 AM CDT 03/25/2023 9:15 AM CDT Impressions MUSE - 03/25/2023 9:15 AM CDT Sinus bradycardia T wave abnormality, consider lateral ischemia No previous ECGs available Reviewed by DONALD Crowley Narrative Procedure Note Bimal Chirinos M.D., Ph.D. - 03/25/2023 IMPRESSION: Sinus bradycardia T wave abnormality, consider lateral ischemia No previous ECGs available Reviewed by DONALD Crowley Shoshana Delacruz M.D., Ph.D. ECG ORDERA BLES MUSE NA * DX Chest AP or PA and [...] M.D., Ph.D. IMG DIAGNO STIC IMAGING PROCEDURES * Home Overnight Oximetry (03/25/2023) 03/25/2023 Impressions AMOS NAVARRO - 03/26/2023 3:34 PM CDT This is an abnormal study with changes suggestive of a sleep-related breathing disorder. Physician: Larry Preston M.D. [id number] Narrative Procedure Note Larry Preston M.D. - 03/26/2023 IMPRESSION: This is an abnormal study with changes suggestive of a sleep-relatedbreathing disorder. Physician: Larry Preston M.D. [id number] Shoshana Delacruz M.D., Ph.D. PFT [facility]A [facility] documented in this encounter Visit Diagnoses Diagnosis Cardiomyopathy Obstructive Hypertrophic (HCC)- Primary Cardiomyopathy Obstructive Hypertrophic (HCC) Cardiomyopathy Obstructive Hypertrophic (HCC) Cardiomyopathy Obstructive Hypertrophic (HCC) Cardiomyopathy Obstructive Hypertrophic (HCC) Cardiomyopathy Obstructive Hypertrophic (HCC) Cardiomyopathy Obstructive Hypertrophic (HCC) documented in this encounter
--- OUTSIDE RECORDS SUMMARY | 2023-10-02 09:41 | XMS_ITS | Encounter Summary ---
Author Name Unknown Organization [facility] Address [address] [place] [address] Care Team Providers Care Crystal Mounter Name Role Phone Unavailable Primary Care Provider Unavailabl e Encounter Details Date Type Department Care Team (Latest Contact Info) Description 03/17/2023 Clinical Communication Department of Cardiovascular Medicine in [place], [place] [address] [place] [phone] General Education InstructorWyatt M.D. Social History Tobacco Use Types Packs/Day Years Used Date Smoking Tobacco: Never Assessed Nutrition Answer Date Recorded Nutrition: EVOO Fat Source Unknown 02/24 Nutrition: Servings of Fruits/Vegetables per Day Not on file 02/24/2023 Dental Answer Date Recorded Dental: Regular Dentist Unknown 02/25/20 23 Sex and Gender Information Value Date Recorded Sex Assigned at Male 03/24/2023 10:10 PM CDT Gender Identity Male 03/24/2023 10:10 PM CDT Sexual Orientation Straight 03/24/2023 10 :10 PM CDT documented as of this encounter Plan of Treatment Upcoming Encounters Date Type Department Care Team (Latest Contact Info) Description 10/06/2023 1:00 PM BLADE SHARPENER Clinical Communication Virtual Review in [place], [place] 200 [place] [address] 10/09/2023 7:30 AM BLADE SHARPENER Appointment Department of Cardiovascular Diseases in [place], [place] [address] [place] [phone] Shoshana Delacruz M.D., Ph.D. [address] [place] [phone] Discharge Disposition: Home or Self Care 10/09/2023 9:15 AM BLADE SHARPENER Appointment Department of Radiology, [facility], in [place], [place] [address] [place] [phone] Shoshana Delacruz M.D., Ph.D. [address] [place] [phone] 10/09/2023 9:40 AM BLADE SHARPENER Ancillary Procedure Department of Cardiovascular Medicine in [place], [place] [address] [place] [phone] Shoshana Delacruz M.D., Ph.D. [address] [place] [phone] 10/09/2023 10:15 AM BLADE SHARPENER Office Visit Department of Cardiovascular Medicine in [place], [place] [address] [place] [phone] Shoshana Delacruz M.D., Ph.D. [address] [place] [phone] 10/09/2023 1:15 PM BLADE SHARPENER Appointment Department of Cardiovascular Diseases in [place], [place] [address] [place] [phone] Shoshana Delacruz M.D., Ph.D. [address] [place] [phone] documented as of this encounter Visit Diagnoses Not on filedocumented in this encounter
--- OUTSIDE RECORDS SUMMARY | 2023-10-02 09:41 | XMS_ITS | Encounter Summary ---
Author Name Unknown Organization [facility] Address [address] [place] [id number] Care Team Providers Care Manuscripts Archivist Name Role Phone Unavailable Primary Care Provider Unavailabl e Reason for Referral * MRI/CAT/PET Scan (Routine) - Closed Specialty Diagnoses / Procedures Referred By Niels nuñez Referred To Contact Radiology Diagnoses Cardiomyopathy Obstructive Hypertrophic (HCC) Procedures MR Cardiac without and with IV Contrast Shoshana Delacruz M.D., Ph.D. [address] [place] [phone] [facility] Referral ID Status Reason Start Date Expiration Date Visits Re quested Visits Authorized [id number] Closed 03/06/2023 05/04/2023 1 1 Reason for Visit * MRI/CAT/PET Scan (Routine) - Closed Specialty Diagnoses / Procedures Referred By Contac t Referred To Contact Radiology Diagnoses Cardiomyopathy Obstructive Hypertrophic (HCC) Procedures MR Cardiac without and with IV Contrast Shoshana Delacruz M.D., Ph.D. [address] [place] [phone] [facility] Referral ID Status Reason Start Date Expiration Date Visits Re quested Visits Authorized [id number] Closed 03/06/2023 05/04/2023 1 1 Encounter Details Date Type Department Care Team (Latest Contact Info) Description 03/25/2023 11:36 AM CDT - 03/25/2023 1:12 PM CDT Hospital Encounter Department of Radiology, [facility], in [place], [place] 200 [place] [phone] Shoshana Delacruz M.D., Ph.D. 200 [place] [phone] Cardiomyopathy Obstructive Hypertrophic (HCC) Discharge Disposition: Home [...] your living situation today? [facility] 03/24/2023 Sex and Gender Information Value Date Recorded Sex Assigned at Male 03/24/2023 10:10 PM CDT Gender Identity Male 03/24/2023 10:10 PM CDT Sexual Orientation Straight 03/24/2023 10 :10 PM CDT documented as of this encounter Last Filed Vital Signs Vital Sign Reading Time Taken Comments Blood Pressure - - Pulse - - Temperature - - Respiratory Rate - - Oxygen Saturation - - Inhaled Oxygen Concentration - - Weight 110 kg (243 lb 9.7 oz) 03/25/2023 12:03 P M CDT Height 177 cm (5' 9.69) 03/25/2023 12:03 PM CDT Body Mass Index 35.27 03/25/2023 12:03 PM CDT documented in this encounter Medications at Time of Discharge [...] 0 04/17/2023 documented as of this encounter Nursing Notes * Camila Carrillo R.N. - 03/25/2023 12:45 PM CDT Outpatient, keeping PIV in for later exam or refused to keep in for later exam requiring PIV: Is PIV being left in? YES If no, did patient refuse? NO Why is PIV being left in? Another procedure/exam scheduled for today which requires a PIV Name and role of person notified in receiving area: ECHO documented in this encounter Plan of Treatment Upcoming Encounters Date Type Department Care Team (Latest Contact Info) Description 10/06/2023 1:00 PM [employer] Clinical Communication Virtual Review in [place], [place] 200 [place] [address] 10/09/2023 7:30 AM [employer] Appointment Department of Cardiovascular Diseases in [address] [phone] Shoshana Delacruz M.D., Ph.D. [address] [place] [phone] Discharge Disposition: Home or Self Care 10/09/2023 9:15 AM [employer] Appointment Department of Radiology, [facility], in [place], [place] [address] [place] [phone] Shoshana Delacruz M.D., Ph.D. [address] [place] [phone] 10/09/2023 9:40 AM [employer] Ancillary Procedure Department of Cardiovascular Medicine in [place], [place] [address] [place] [phone] Shoshana Delacruz M.D., Ph.D. [address] [place] [phone] 10/09/2023 10:15 AM [employer] Office Visit Department of Cardiovascular Medicine in [place], [place] [address] [place] [phone] Shoshana Delacruz M.D., Ph.D. [address] [place] [phone] 10/09/2023 1:15 PM [employer] Appointment Department of Cardiovascular Diseases in [place], [place] [address] [place] [phone] Shoshana Delacruz M.D., Ph.D. [address] [place] [phone] documented as of this encounter Procedures Procedure Name Priority Date/Time Associated Diagnosis Comments MR CARDIAC WITHOUT AND WITH IV CONTRAST RAD - Routine (most inpatients and all outpatients) 03/25/2023 1:05 PM CDT Cardiomyopathy Obstructive Hypertrophic (HCC) documented in this encounter Results * MR Cardiac without and with IV [...] Left atrial enlargement. Shoshana Delacruz M.D., Ph.D. IMG MRI DE OCEDURES documented in this encounter Visit Diagnoses Diagnosis Cardiomyopathy Obstructive Hypertrophic (HCC) documented in this encounter Administered Medications Inactive Administered Medications - up to 3 most recent administrations Medication Order MAR Action Action Date Dose Rate Site gadobutrol injection 0.01-30 mL (GADAVIST) 0.01-30 mL, intravenous, Once in imaging, contrast, Starting on 03/25/23 at 1153, For 1 dose, Imaging Protocol Orders, Dose per Radiant Medication Guidelines Intrathecal doses greater than 0.25 mL not recommended. Given 03/25/2023 12:41 PM CDT 22 mL sodium chloride (PF) 0.9 % injection 1-100 mL 1-100 mL, intravenous, Once, On 03/25/23 at 1215, For 1 dose, Imaging Protocol Orders Given 03/25/2023 12:41 PM CDT 40 mL documented in this encounter
--- OUTSIDE RECORDS SUMMARY | 2023-10-02 09:41 | XMS_ITS | Clinical Summary ---
Author Name Unknown Organization [facility] Address [place], [place] [address] Care Team Providers Care Screener And Blender Operator Name Role Phone Wilmer Dodd MD Primary Care Provider [phone] Shoshana Rasheed MD Unavailable Allergies Active Allergy Reactions Criticality Noted Date Comments Nitroglycerin *Unknown 08/23/2014 Due to hypertropic cardiomyopathy HCM, he was told by payroll machine operator Oxycodone Itching 06/10/2013 Penicillins Vomiting 06/10/2013 Medications Medication Sig Dispensed Refills Start Date End Date Status medication order composer Taking a probiotic once daily. 0 03/27/2017 Active testosterone 1.62%, 20.25mg/1.25g, (ANDROGEL) 1.62 % (20.25 mg/1.25 gram) glpk Apply 20.25 mg on dry, clean, hairless skin. Pump- uses 4 pumps daily 0 07/19/2019 Active metoprolol tartrate (LOPRESSOR) 50 mg tabletIndications:Hyp ertrophic cardiomyopathy (HC),PAF (paroxysmal atrial fibrillation) (HC) Take 1 tablet by mouth one time if needed for Other (Specify). 90 tablet. 1 09/18/2020 Active atorvastatin (LIPITOR) 80 mg tabletIndications:Hyp ertrophic cardiomyopathy (HC),Hyperlipidemia, unspecified hyperlipidemia type Take 1 Tablet (80 mg) by mouth once daily. 90 Tablet 3 11/28/2022 Active rivaroxaban (Xarelto) 20 mg tabletIndications:Atr ial fibrillation, unspecified type (HC) Take 1 Tablet (20 mg) by mouth once daily with evening meal. 90 Tablet 0 01/25/2023 Active amLODIPine (NORVASC) 10 mg tabletIndications:Hyp ertension Take 1 Tablet (10 mg) by mouth once daily. 90 Tablet 0 01/25/2023 Active metoprolol succinate (TOPROL XL) 100 mg Sustained-Release tabletIndications:Hyp ertrophic cardiomyopathy (HC) Take 1 Tablet (100 mg) by mouth once daily. 90 Tablet 0 01/25/2023 Active furosemide (LASIX) 20 mg tabletIndications:Hyp ertrophic cardiomyopathy (HC) Take 1 Tablet (20 mg) by mouth once daily. 30 Tablet 0 01/31/2023 Active Multaq 400 mg tabletIndications:Par oxysmal atrial fibrillation (HC) TAKE 1 TABLET BY MOUTH TWO TIMES DAILY WITH MEALS. CARDIOLOGY APPT REQUIRED FOR FURTHER REFILLS. 180 Tablet 0 03/03/2023 Active Active Problems Problem Noted Date Diagnosed Date Abnormal cardiac CT angiography 12/03/2021 Paroxysmal atrial fibrillation 07/27/2014 Obesity (BMI 30.0-34.9) 07/27/2014 Hypertension 07/27/2014 Smoker 07/27/2014 Hypertrophic cardiomyopathy 08/09/2013 Immunizations Name Administration Dates Next Due COVID-19 vaccine ([facility] 30mcg/0.3mL) DENY PRADO 08/06/2021,12/21/2020,11/30/2020 Hepatitis A (Adult) 08/04/2001 Hepatitis B (Adult) 10/06/2001 Hepatitis B (Peds) 08/04/2001 Influenza RIV4 (Age 18+ Years) PRESERV FREE 02/2019 Influenza, IIV3 (Age 6-35 mos) 07/13/2014,2010 Influenza, IIV4 08/14/2016,07/13/2014 Td (Age >=7 Years) 03/16/1994 Td, Preservative Free (age >= 7 Years) 3 Tdap 02/14/2015 Social History Tobacco Use Types Packs/Day Years Used Date Smoking Tobacco: Former Cigars Smokeless Tobacco: Never Comments:Occassional Cigar Alcohol Use Standard Drinks/Week Comments Yes 0 (1 standard drink = 0.6 oz pur e alcohol) 2 drinks a week Social Connections Answer Date Recorded Frequency of Communication with Friends and Fami ly Not on file 09/10/2021 Financial Resource Strain Answer Date R ecorded Difficulty of Paying Living Expenses Not on file 09/10/2021 Difficulty of Paying Living Expenses Not on file 09/10/2021 Sex and Gender Information Value Date Recorded Sex Assigned at Not on file Gender Identity Not on file Sexual Orientation Not on file Obstetrics History Last Filed Vital Signs Vital Sign Reading Time Taken Comments Blood Pressure 140/79 09/01/2022 9:16 AM INVASIVE CARDIOVASCULAR TECHNOLOGIST Pulse 59 09/01/2022 9:16 AM INVASIVE CARDIOVASCULAR TECHNOLOGIST Temperature 37.1 ??C (98.8 ??F) 09/01/2022 9:16 AM CS T Respiratory Rate 20 09/01/2022 9:16 AM INVASIVE CARDIOVASCULAR TECHNOLOGIST Oxygen Saturation 99% 09/01/2022 9:16 AM INVASIVE CARDIOVASCULAR TECHNOLOGIST Inhaled Oxygen Concentration - - Weight 108 kg (238 lb) 09/01/2022 9:16 AM INVASIVE CARDIOVASCULAR TECHNOLOGIST Height 180.3 cm (5' 11) 12/03/2021 8:49 AM CDT Body Mass Index 33.19 12/03/2021 8:49 AM CDT Plan of Treatment Health Maintenance Due Date Last Done Comments Depression screening for age 12+ 1979 HIV for age 15-65 1982 Hepatitis C screening for age 18-79 1985 Colonoscopy through age 75 2012 Zoster (shingles) series for age 50+ (1 of 2) 2017 BMI (ht and wt on same day) for age 18+ 11/28/2022 11/28/2021, 09/18/2020, 07/19/2019, Additional history exists COVID-19 vaccine series ( season) 2023 08/06/2021, 12/21/2020, 11/30/2020 Influenza for age 50-64 05/16/2023 08/20/20 19, 08/14/2016, 07/13/2014 Tetanus booster 02/14/2025 02/14/2015, 02/13, 03/16/1994 Lipids for age 45-75 11/14/2027 11/13/2022, 08/16/20 22 Tdap Completed 02/14/2015 Pneumococcal series for age 6-64 Aged Out No longer eligible based on patient's age to complete this topic Advance Directives Documents on File Type Date Recorded Patient Director Of [employer] [facility] Expl anation Healthcare Directive 08/23/2014 12:00 AM 1 10/24/13 Latest Code Status on File Code Status Date Activated Date Inactivated Comments Full Code 12/03/2021 12:43 PM 12/03/2021 5:19 PM Question Answer Comments Code Status Discussion: Reviewed Preferences Code Status History Code Status Date Activated Date Inactivated Comments Full Code 08/23/2014 11:32 AM 08/24/2014 1:14 PM Care Teams Screener And Blender Operator Relationship Specialty Start Date End Date Wilmer Dodd MD PCP - General Family Practice 06/25/12 Shoshana Rasheed MD [address] [facility] [address] [place] [address] Cardiovascular Disease 11/23/21
--- OUTSIDE RECORDS SUMMARY | 2023-10-02 09:41 | XMS_ITS | Encounter Summary ---
Author Name Unknown Organization [facility] Address [address] [place] [address] Care Team Providers Care Enrollment Management Director Name Role Phone Unavailable Primary Care Provider Unavailabl e Reason for Visit * Reason Onset Date Comments Echo Move Up 03/17/2023 Encounter Details Date Type Department Care Team (Latest Contact Info) Description 03/17/2023 Clinical Communication Department of Cardiovascular Medicine in [place], [place] [address] [place] [phone] Human Resources Team MemberWyatt M.D. Echo Move Up Social History Tobacco Use Types Packs/Day Years [...] (Latest Contact Info) Description 10/06/2023 1:00 PM CEO & FOUNDER Clinical Communication Virtual Review in [place], [place] 200 [place] [address] 10/09/2023 7:30 AM CEO & FOUNDER Appointment Department of Cardiovascular Diseases in [place], [place] [address] [place] [phone] Shoshana Delacruz M.D., Ph.D. [address] [place] [phone] Discharge Disposition: Home or Self Care 10/09/2023 9:15 AM CEO & FOUNDER Appointment Department of Radiology, [facility], in [place], [place] [address] [place] [phone] Shoshana Delacruz M.D., Ph.D. [address] [place] [phone] 10/09/2023 9:40 AM CEO & FOUNDER Ancillary Procedure Department of Cardiovascular Medicine in [place], [place] [address] [place] [phone] Shoshana Delacruz M.D., Ph.D. [address] [place] [phone] 10/09/2023 10:15 AM CEO & FOUNDER Office Visit Department of Cardiovascular Medicine in [place], [place] [address] [place] [phone] Shoshana Delacruz M.D., Ph.D. [address] [place] [phone] 10/09/2023 1:15 PM CEO & FOUNDER Appointment Department of Cardiovascular Diseases in [place], [place] [address] [place] [phone] Shoshana Delacruz M.D., Ph.D. [address] [place] [phone] documented as of this encounter Visit Diagnoses Not on filedocumented in this encounter
== END 2023-09-25 09:11 | disposition home or self-care (01) ==
LOC: NFLDREF 10-02 09:34
PROVIDERS: PCP Family Medicine; Referring Provider Family Medicine; Visit Provider Family Medicine
DX: G50.0 Trigeminal neuralgia (principal); Z79.899 Other long term (current) drug therapy
CPT/HCPCS: 80076; 85027

== ENCOUNTER 2023-12-01 09:01 | Outpatient (CLI) | payer BC, SELFPAY | END 2023-12-01 09:02 | disposition home or self-care (01) | LOC: NFLDREF 12-03 07:30 | PROVIDERS: PCP Family Medicine; Referring Provider Family Medicine; Visit Provider Family Medicine | DX: R74.8 Abnormal levels of other serum enzymes (principal); Z12.5 Encounter for screening for malignant neoplasm of prostate | CPT/HCPCS: 80076; G0103 ==